=== PATIENT | female | born 1955 | race Caucasian/White ===

== ENCOUNTER 2016-06-02 20:27 | Inpatient (IN) | payer OTHER ==
[2016-06-02 21:30] VITALS: BMI 18.6
--- NOTE | 2016-06-02 22:12 | HP ---
CIWA Score - CIWA Score Nausea/Vomitin Muscle Tremors: 3 Anxiety: 3 Agitation: 2 Paroxysmal Sweats: 1-Minimal Palms Moist Orientation: 0-Oriented Tacttile Disturbances: 2-Mild Itch/Numbness/Burn Auditory Disturbances: 2-Mild Harshness/Frighten Visual Disturbances: 2-Mild Sensitivity Headache: 2-Mild CIWA-Ar Total Score: 20 Admission ROS BHS - HPI Chief Complaint: I NEED HELP TO STOP USING KLONOPIN AND XANAX Allergies/Adverse Reactions: Allergies Allergy/AdvReac Type Severity Reaction Status Date / Time No Known Allergies Allergy Verified 06/02/16 21:44 History of Present Illness: THIS 60 YEARS OLD FEMALE WITH KLONOPIN AND XANAX DEPENDENCE,WITHDRAWAL SYMPTOM, LAST DETOX 30 YEARS AGO MMTP 195 MGS/DAY,LAST MEDICATED TODAY HTN S/P LIVER TRANSPLANTATION HTN OLD CVA ASTHMA HEPATITIS C ANEMIA INSOMNIA DEPRESSION NO SIGNIFICANT PERIOD OF SOBRIETY Exam Limitations: No Limitations - Ebola screening Have you traveled outside of the country in the last 21 days: No (N) Have you had contact with anyone from an Ebola affected area: No Have you been sick,other than usual withdrawal symptoms: No Do you have a fever: No - Review of Systems Constitutional: Loss of Appetite, Malaise, Night Sweats, Changes in sleep EENT: reports: Nose Congestion Respiratory: reports: No Symptoms reported Cardiac: reports: Palpitations GI: reports: Nausea, Vomiting, Abdominal cramping : reports: No Symptoms Reported Musculoskeletal: reports: Back Pain, Muscle Pain Integumentary: reports: Dryness Neuro: reports: Headache, Tremors Endocrine: reports: No Symptoms Reported Hematology: reports: No Symptoms Reported (ANEMIA) Psychiatric: reports: Judgement Intact, Mood/Affect Appropiate, Orientated x3, Depressed (NSOMNIA) Patient History - Patient Medical History Hx Anemia: Yes (ON FERROUS SULFATE) Hx Asthma: Yes (ON ALBUROL INHALER) Hx Chronic Obstructive Pulmonary Disease (COPD): No Hx Cancer: No Hx Cardiac Disorders: No Hx Congestive Heart Failure: No Hx Hypertension: Yes (ON MED) Hx Hypercholesterolemia: No Hx Pacemaker: No HX Cerebrovascular Accident: Yes (IN 04/08 WITH LEFT SIDE WEAKNESS BUT RECOVER) Hx Seizures: No Hx Dementia: No Hx Diabetes: No Hx Gastrointestinal Disorders: Yes (GERD) Hx Liver Disease: Yes (S/P LIVER TRANSPLANTATION IN 2011) Hx Genitourinary Disorders: No Hx Sexually Transmitted Disorders: No Hx Renal Disease (ESRD): No Hx Thyroid Disease: No Hx Human Immunodeficiency Virus (HIV): No (LAST 2016 NEGATIVE) Hx Hepatitis C: Yes (TREATED) Hx Depression: Yes Hx Suicide Attempt: No Hx Bipolar Disorder: No Hx Schizophrenia: No Other Medical History: NO SUICIDAL,NO HOMICIDAL - Patient Surgical History Past Surgical History: Yes Other Surgical History: S/P LIVER TRANSPLANTATION IN 2011 - PPD History Previous Implant?: Yes Documented Results: Positive w/o proof Implanted On Prior R Admission?: No PPD to be Administered?: No - Reproductive History Patient is a Female of Child Bearing Age (11 -55 yrs old): No - Smoking Cessation Smoking history: Current every day smoker Have you smoked in the past 12 months: Yes Aproximately how many cigarettes per day: 10 Cigars Per Day: 0 Hx Chewing Tobacco Use: No Initiated information on smoking cessation: Yes 'Breaking Loose' booklet given: 06/02/16 - Substance & Tx. History Hx Alcohol Use: No Hx Substance Use: Yes Substance Use Type: Tranquilizers Hx Substance Use Treatment: No - Substances Abused Benzodiazepine (Klonopin) Route: Oral Frequency: Daily Amount used: 6 mg Age of first use: 59 Date of Last Use: 06/02/16 Alprazolam (Xanax) Route: Oral Frequency: Daily Amount used: 8mg Age of first use: 59 Date of Last Use: 05/31/16 Family Disease History - Family Disease History Family History: Denies Admission Physical Exam BHS - Vital Signs Vital Signs: Vital Signs - 24 hr 06/02/16 21:26 Temperature 97.6 F Pulse Rate 64 Respiratory 18 Rate Blood Pressure 140/61 - Physical General Appearance: Yes: Moderate Distress, Tremorous, Irritable, Sweating, Anxious HEENTM: Yes: Hearing grossly Normal, Normal ENT Inspection, RODOLOF, Pharynx Normal , Nasal Congestion Respiratory: Yes: Lungs Clear, Normal Breath Sounds, No Respiratory Distress Neck: Yes: Within Normal Limits, Supple, Trachea in good position Breast: Yes: Breast Exam Deferred Cardiology: Yes: Within Normal Limits, Regular Rhythm, Regular Rate, S1, S2 Abdominal: Yes: Normal Bowel Sounds, Non Tender, Flat, Soft, Surgical Scar Genitourinary: Yes: Within Normal Limits Back: Yes: Muscle Spasm Musculoskeletal: Yes: Within Normal Limits, Back pain Extremities: Yes: Tremors Neurological: Yes: nurse aide evaluator II-XII NML intact, Alert, Motor Strength 5/5 Integumentary: Yes: Dry Lymphatic: Yes: Within Normal Limits - Diagnostic (1) Uncomplicated sedative, hypnotic or anxiolytic withdrawal Current Visit: Yes Status: Acute (2) Opioid dependence on agonist therapy Current Visit: Yes Status: Acute (3) Nicotine dependence Current Visit: Yes Status: Acute (4) History of liver transplant Current Visit: Yes Status: Acute (5) Essential hypertension Current Visit: Yes Status: Acute (6) GERD (gastroesophageal reflux disease) Current Visit: Yes Status: Acute (7) Old cerebrovascular accident (CVA) without late effect Current Visit: Yes Status: Acute (8) Asthma Current Visit: Yes Status: Acute (9) Hepatitis C antibody test positive Current Visit: Yes Status: Acute (10) Anemia Current Visit: Yes Status: Acute (11) Neuropathy Current Visit: Yes Status: Acute (12) Positive PPD Current Visit: Yes Status: Acute Cleared for Admission [facility] - Detox or Rehab [facility] Level of Care: Medically Managed Detox Regimen/Protocol: Valium [facility] Breath Alcohol Content Breath Alcohol Content: 0 Urine Pregancy Test - Result Urine Test Results: Negative- NO Line Present Urine Drug Screen - Results Drug Screen Negative: No Urine Drug Screen Results: BZO-Benzodiazepines, MTD-Methadone
[2016-06-02] MEDS ORDERED: MAG HYDROX/AL HYDROX/SIMETH 30 ML UNIT-DOSE CUP PO PRN (22:33)
[2016-06-02] MEDS ORDERED: hydrOXYzine PAMOATE 25 MG CAPSULE (FP) PO PRN (22:33)
[2016-06-02] MEDS ORDERED: diazePAM 5 MG TABLET PO ONE (22:33)
[2016-06-02] MEDS ORDERED: LOPERAMIDE HCL 2 MG CAPSULE PO PRN (22:33)
[2016-06-02] MEDS ORDERED: MENTHOL/PHENOL 1 EACH UD MM PRN (22:33)
[2016-06-02] MEDS ORDERED: guaiFENesin/D-METHORPHAN HB 10 ML UNIT-DOSE CUPS PO PRN (22:33)
[2016-06-02] MEDS ORDERED: MAGNESIUM HYDROX 2400MG/30ML ORAL SUSPENSION 30 ML CUP PO PRN (22:33)
[2016-06-02] MEDS ORDERED: MAGNESIUM CITRATE 300 ML BOTTLE PO PRN (22:33)
[2016-06-02] MEDS ORDERED: P-EPHED 60MG/TRIPROLIDI 2.5MG TABLET PO PRN (22:33)
[2016-06-02] MEDS ORDERED: diphenhydrAMINE HCL 50 MG CAPSULE PO PRN (22:33)
[2016-06-02] MEDS: diazePAM 5 MG TABLET PO SCH (23:43)
[2016-06-03] MEDS: diazePAM 5 MG TABLET PO SCH ×3 (05:04→22:22)
[2016-06-03] MEDS: hydrALAZINE HCL 50 MG TABLET (FP) PO SCH ×3 (07:27→22:22)
[2016-06-03] MEDS ORDERED: METHADONE HCL 10 MG TABLET PO ONE (09:32)
[2016-06-03] MEDS ORDERED: METHADONE 160 MG, METHADONE 30 MG, METHADONE 5 MG PO ONE (09:40)
[2016-06-03] MEDS ORDERED: DOXAZOSIN MESYLATE 2 MG TABLET (FP) PO SCH (10:00)
--- NOTE | 2016-06-03 10:38 | PN ---
S CIWA - CIWA Score Nausea/Vomitin-No Nausea/No Vomiting Muscle Tremors: 4-Moderate,w/Arms Extend Anxiety: 3 Agitation: 4-Moderately Restless Paroxysmal Sweats: 3 Orientation: 0-Oriented Tacttile Disturbances: 0-None Auditory Disturbances: 0-None Visual Disturbances: 0-None Headache: 0-None Present CIWA-Ar Total Score: 14 BHS Progress Note (SOAP) Subjective: lightheaded sweats interrupted sleep agitation Objective: 06/03/16 10:33 Vital Signs Temperature 96.8 F L 06/03/16 10:03 Pulse Rate 57 L 06/03/16 10:03 Respiratory Rate 20 06/03/16 10:03 Blood Pressure 149/71 06/03/16 10:03 O2 Sat by Pulse Oximetry (%) labs pending awake/alert ambulating no acute distress Assessment: 06/03/16 10:36 withdrawal sx Plan: continue detox increase fluids labs pending
[2016-06-03] MEDS: ASPIRIN 81 MG CHEWABLE TABLETS PO SCH (10:50)
[2016-06-03] MEDS: PRENATAL VITAMINS W/ FOLIC ACID TABLET (FP) PO SCH (10:50)
[2016-06-03] MEDS: PANTOPRAZOLE 40 MG TABLET (FP) PO SCH (10:50)
[2016-06-03] MEDS: LISINOPRIL 5 MG TABLET (FP) PO SCH (10:50)
[2016-06-03] MEDS: CALCITRIOL 0.25 MCG CAPSULE (FP) PO SCH (10:51)
[2016-06-03] MEDS: FERROUS SO4 325 MG TABLET (FP) PO SCH (10:52)
[2016-06-03] MEDS ORDERED: METHADONE HCL 10 MG TABLET ONE (10:53)
[2016-06-03] MEDS ORDERED: METHADONE HCL 5 MG TABLET ONE (10:54)
[2016-06-03] MEDS ORDERED: METHADONE HCL 40 MG DISPERSABLE TABLET ONE (10:54)
[2016-06-03] MEDS: diazePAM 5 MG TABLET PO PRN (10:55)
[2016-06-03 11:01] LABS: MCH 29.3 pg (25.7-33.7); MCHC 32.9 g/dl (32.0-36.0); MEAN CELL VOLUME 88.9 fl (80-96); MEAN PLT VOLUME 8.3 fl (7.5-11.1); PLATELET COUNT 92 K/MM3 (134-434); WHITE BLOOD COUNT 2.4 K/mm3 (4.0-10.0)
[2016-06-03 11:13] LABS: ALBUMIN 3.4 g/dl (3.4-5.0); CALCIUM 8.3 mg/dL (8.5-10.1); CREATININE 2.2 mg/dL (0.55-1.02)
[2016-06-03 11:15] LABS: BILIRUBIN,TOTAL 0.4 mg/dL (0.2-1.0); TOT PROT 6.3 g/dl (6.4-8.2)
[2016-06-03] MEDS ORDERED: INFLUENZA VACCINE 45 MCG/0.5 ML (MDV 16-17) IM ONE (12:00)
[2016-06-03] MEDS: CYCLOSPORINE 125 MG PO SCH ×2 (12:02→22:22)
[2016-06-03] MEDS: CHOLECALCIFEROL (VITAMIN D3) 1,000 UNIT TABLET (FP) PO SCH (12:05)
[2016-06-03] MEDS: DOXAZOSIN MESYLATE 4 MG TABLET PO SCH (12:06)
[2016-06-03] MEDS: NICOTINE 21 MG/24 HOURS TOPICAL PATCH TD SCH (12:18)
--- NOTE | 2016-06-03 12:36 | EKG ---
Test Reason : Blood Pressure : / mmHG Vent. Rate : 053 BPM Atrial Rate : 053 BPM P-R Int : 138 ms QRS Dur : 076 ms QT Int : 458 ms P-R-T Axes : 062 020 034 degrees QTc Int : 429 ms SINUS BRADYCARDIA ANTERIOR INFARCT , AGE UNDETERMINED ABNORMAL ECG NO PREVIOUS ECGS AVAILABLE Confirmed by LIZABETH HANSON MD ([id number]) on 06/03/2016 12:36:13 PM Referred By: Confirmed By:LIZABETH HANSON MD
[2016-06-03] MEDS: ACETAMINOPHEN 325 MG TABLET (FP) PO PRN (20:53)
[2016-06-03] MEDS: THIAMINE HCL 100 MG TABLET (FP) PO SCH (22:22)
--- NOTE | 2016-06-03 22:38 | CONSULT ---
[facility] Psychiatric Consult - Data Date of interview: 06/03/16 Admission source: [facility] Identifying data: First admission to [facility] for this 60 y/o female seeking detox treatment for benzodiazepine dependence (xanax and clonazepam) .Patient is single,mother of one,domiciled,retired as solution designer and supprted on her pension benefits. Substance Abuse History: - Smoking Cessation. Smoking history: Current every day smoker. Have you smoked in the past 12 months: Yes. Aproximately how many cigarettes per day: 10. Cigars Per Day: 0. Hx Chewing Tobacco Use: No. Initiated information on smoking cessation: Yes. 'Breaking Loose' booklet given : 06/02/16. - Substance & Tx. History. Hx Alcohol Use: No. Hx Substance Use: Yes. Substance Use Type: Tranquilizers. Hx Substance Use Treatment: No. - Substances Abused. Benzodiazepine (Klonopin). Route: Oral. Frequency: Daily. Amount used: 6 mg. Age of first use: 59. Date of Last Use: 06/02/16. Alprazolam (Xanax). Route: Oral. Frequency: Daily. Amount used: 8mg. Age of first use: 59. Date of Last Use: 05/31/16. Patient confirmed. Medical History: Bronchial asthma,anemia,hypertension,GERD,CVA with left-sided weakness (2016) and history of liver transplant (2011). Psychiatric History: One psychiatric hospitalization thirty years ago.Used to be on lexapro.Stopped taking that medication (own choice).Diagnosed with MDD.Ms Zamora is on methadone maintenance (195 mg/day).No history of suicide attempts. Physical/Sexual Abuse/Trauma History: Patient denies. Additional Comment: Urine Drug Screen Results: BZO-Benzodiazepines, MTD- Methadone.Noted. Mental Status Exam - Mental Status Exam Alert and Oriented to: Time, Place, Person Cognitive Function: Grossly Intact Patient Appearance: Well Groomed Mood: Hopeful, Euthymic Affect: Normal Range Patient Behavior: Fatigued, Appropriate, Cooperative Speech Pattern: Clear Voice Loudness: Normal Thought Process: Goal Oriented Thought Disorder: Not Present Hallucinations: Denies Homicidal Ideation: Denies Insight/Judgement: Poor Sleep: Fair Appetite: Good Muscle strength/Tone: Normal Gait/Station: Normal Psychiatric Findings - Problem List ([place] 1, 2,3) (1) Opioid dependence on agonist therapy Current Visit: Yes Status: Acute (2) Uncomplicated sedative, hypnotic or anxiolytic withdrawal Current Visit: Yes Status: Acute (3) Nicotine dependence Current Visit: Yes Status: Acute (4) Substance-induced anxiety disorder Current Visit: Yes Status: Acute (5) Anemia Current Visit: Yes Status: Chronic (6) Asthma Current Visit: Yes Status: Chronic (7) Essential hypertension Current Visit: Yes Status: Chronic (8) GERD (gastroesophageal reflux disease) Current Visit: Yes Status: Chronic (9) Hepatitis C antibody test positive Current Visit: Yes Status: Chronic (10) History of liver transplant Current Visit: Yes Status: Chronic (11) Neuropathy Current Visit: Yes Status: Chronic (12) Old cerebrovascular accident (CVA) without late effect Current Visit: Yes Status: Chronic (13) Positive PPD Current Visit: Yes Status: Chronic - Initial Treatment Plan Initial Treatment Plan: Psychoeducation.Detoxification.Observation.Patient declines to take any medication other than methadone and detox agents.
[2016-06-04] MEDS: ACETAMINOPHEN 325 MG TABLET (FP) PO PRN ×2 (00:44→17:19)
[2016-06-04] MEDS ORDERED: METHADONE HCL 10 MG TABLET ONE (04:56)
[2016-06-04] MEDS ORDERED: METHADONE HCL 40 MG DISPERSABLE TABLET ONE (04:56)
[2016-06-04] MEDS ORDERED: METHADONE HCL 5 MG TABLET ONE (04:57)
[2016-06-04] MEDS: METHADONE 160 MG, METHADONE 30 MG, METHADONE 5 MG PO SCH (05:50)
[2016-06-04] MEDS ORDERED: METHADONE HCL 40 MG DISPERSABLE TABLET PO SCH (06:00)
[2016-06-04] MEDS: hydrALAZINE HCL 50 MG TABLET (FP) PO SCH ×3 (06:58→22:18)
[2016-06-04] MEDS: LISINOPRIL 5 MG TABLET (FP) PO SCH (10:25)
[2016-06-04] MEDS: PRENATAL VITAMINS W/ FOLIC ACID TABLET (FP) PO SCH (10:25)
[2016-06-04] MEDS: PANTOPRAZOLE 40 MG TABLET (FP) PO SCH (10:26)
[2016-06-04] MEDS: diazePAM 5 MG TABLET PO SCH ×2 (10:26→22:18)
[2016-06-04] MEDS: FERROUS SO4 325 MG TABLET (FP) PO SCH (10:26)
[2016-06-04] MEDS: CHOLECALCIFEROL (VITAMIN D3) 1,000 UNIT TABLET (FP) PO SCH (10:27)
[2016-06-04] MEDS: CALCITRIOL 0.25 MCG CAPSULE (FP) PO SCH (10:27)
[2016-06-04] MEDS: CYCLOSPORINE 125 MG PO SCH ×2 (10:28→22:18)
[2016-06-04] MEDS: NICOTINE 21 MG/24 HOURS TOPICAL PATCH TD SCH (10:29)
[2016-06-04] MEDS: DOXAZOSIN MESYLATE 4 MG TABLET PO SCH (10:30)
[2016-06-04 10:35] LABS: URINE APPEARANCE CLEAR; URINE BILIRUBIN NEGATIVE (NEGATIVE); URINE BLOOD NEGATIVE (NEGATIVE); URINE COLOR LTYELLOW; URINE GLUCOSE (UA) 3+ (NEGATIVE); URINE KETONE NEGATIVE (NEGATIVE); URINE LEUK ESTERASE NEGATIVE (NEGATIVE); URINE NITRITE NEGATIVE (NEGATIVE); URINE PROTEIN NEGATIVE (NEGATIVE); URINE UROBILINOGEN NEGATIVE E.U./dl (0.2-1.0)
--- NOTE | 2016-06-04 11:15 | PN ---
S CIWA - CIWA Score Nausea/Vomitin Muscle Tremors: 2 Anxiety: 3 Agitation: 3 Paroxysmal Sweats: 3 Orientation: 0-Oriented Tacttile Disturbances: 1-Very Mild Itch/Numbness Auditory Disturbances: 0-None Visual Disturbances: 0-None Headache: 1-Very Mild CIWA-Ar Total Score: 15 S Progress Note (SOAP) Subjective: interrupted sleep, sweats, headache ,constipation Objective: 06/04/16 11:14 Vital Signs Temperature 98.1 F 06/04/16 10:01 Pulse Rate 80 06/04/16 10:01 Respiratory Rate 16 06/04/16 10:01 Blood Pressure 131/60 06/04/16 10:01 O2 Sat by Pulse Oximetry (%) Laboratory Tests 06/03/16 06/03/16 06/03/16 06:00 06:00 06:00 WBC 2.4 L RBC 3.65 Hgb 10.7 Hct 32.5 MCV 88.9 MCHC 32.9 RDW 15.0 Plt Count 92 L MPV 8.3 Sodium 143 Potassium 4.5 Chloride 106 Carbon Dioxide 28 Anion Gap 9 BUN 44 H Creatinine 2.2 H Creat Clearance w eGFR 22.77 Random Glucose 121 H Calcium 8.3 L Total Bilirubin 0.4 AST 13 L ALT 9 L Alkaline Phosphatase 79 Total Protein 6.3 L Albumin 3.4 Urine Color Urine Appearance Urine pH Ur Specific [place] Urine Protein Urine Glucose (UA) Urine Ketones Urine Blood Urine Nitrite Urine Bilirubin Urine Urobilinogen Ur Leukocyte Esterase RPR Titer Nonreactive 06/04/16 07:00 WBC RBC Hgb Hct MCV MCHC RDW Plt Count MPV Sodium Potassium Chloride Carbon Dioxide Anion Gap BUN Creatinine Creat Clearance w eGFR Random Glucose Calcium Total Bilirubin AST ALT Alkaline Phosphatase Total Protein Albumin Urine Color Ltyellow Urine Appearance Clear Urine pH 5.0 Ur Specific [place] 1.042 H Urine Protein Negative Urine Glucose (UA) 3+ H Urine Ketones Negative Urine Blood Negative Urine Nitrite Negative Urine Bilirubin Negative Urine Urobilinogen Negative Ur Leukocyte Esterase Negative RPR Titer pt aox3 in nad ambulating Assessment: 06/04/16 11:15 withdrawal sx;s renal failure hep c s/p liver transplant htn 06/04/16 11:16 Plan: cont. detox increase fluids repeat labs lactulose hs
[2016-06-04] MEDS ORDERED: LACTULOSE 20 GM/30 ML UDC (FOR ORAL USE ONLY) PO ONE (11:20)
[2016-06-04] MEDS: ASPIRIN 81 MG CHEWABLE TABLETS PO SCH (11:42)
[2016-06-04] MEDS: diazePAM 5 MG TABLET PO PRN (17:20)
[2016-06-04] MEDS: IBUPROFEN 400 MG TABLET (FP) PO PRN (19:34)
[2016-06-04] MEDS: THIAMINE HCL 100 MG TABLET (FP) PO SCH (22:18)
[2016-06-04] MEDS: LACTULOSE 20 GM/30 ML UDC (FOR ORAL USE ONLY) PO SCH (22:22)
[2016-06-05] MEDS ORDERED: METHADONE HCL 5 MG TABLET ONE (04:26)
[2016-06-05] MEDS ORDERED: METHADONE HCL 10 MG TABLET ONE (04:26)
[2016-06-05] MEDS ORDERED: METHADONE HCL 40 MG DISPERSABLE TABLET ONE (04:26)
[2016-06-05] MEDS: METHADONE 160 MG, METHADONE 30 MG, METHADONE 5 MG PO SCH (05:27)
[2016-06-05] MEDS: hydrALAZINE HCL 50 MG TABLET (FP) PO SCH ×3 (05:30→22:14)
--- NOTE | 2016-06-05 09:29 | PN ---
Psychiatric Progress Note Vital Signs: Vital Signs Period Temp Pulse Resp BP Sys/Thompson Pulse Ox Last 24 Hr 97.3 F-98.1 F 56-80 16-20 131-146/51-79 Date of Session: 06/05/16 Chief Complaint:: My medications HPI: Patient reprots not having hjer preadmission medications: Gabapentin 500mg po bid. Lexapro 20mg poqd Current Medications: Active Medications Generic Name Dose Route Start Last Admin Trade Name Freq PRN Reason Stop Dose Admin Acetaminophen 650 mg 06/02/16 22:33 06/04/16 17:19 Tylenol - PO 650 mg Q4H PRN Administration FEVER OR PAIN Al Hydroxide/Mg Hydroxide 30 ml 06/02/16 22:33 Mylanta Oral Suspension - PO Q6H PRN DYSPEPSIA Aspirin 162 mg 06/03/16 10:00 06/04/16 11:42 Asa - PO 162 mg DAILY JOSÉ MIGUEL Administration Calcitriol 0.25 mcg 06/03/16 10:00 06/04/16 10:27 Rocaltrol - PO 0.25 mcg DAILY JOSÉ MIGUEL Administration Cholecalciferol 1,000 unit 06/03/16 10:00 06/04/16 10:27 Vitamin D3 - PO 1,000 unit DAILY JOSÉ MIGUEL Administration Diazepam 10 mg 06/02/16 22:33 06/04/16 17:20 Valium - PO 06/05/16 22:32 10 mg Q4H PRN Administration WITHDRAWAL(CONT SUBST) Diazepam 5 mg 06/04/16 10:00 06/04/16 22:18 Valium - PO 06/05/16 22:01 5 mg BID JOSÉ MIGUEL Administration Diazepam 5 mg 06/06/16 10:00 Valium - PO 06/06/16 10:01 DAILY JOSÉ MIGUEL Diphenhydramine HCl 50 mg 06/02/16 22:33 06/04/16 01:58 Benadryl - PO 50 mg HSMR1 PRN Administration INSOMNIA Doxazosin Mesylate 2 mg 06/03/16 10:00 06/04/16 10:30 Cardura - PO 2 mg DAILY JOSÉ MIGUEL Administration Eucalyptus/Menthol/Phenol/Sorbitol 1 each 06/02/16 22:33 Cepastat Lozenge - MM Q4H PRN SORE THROAT Ferrous Sulfate 325 mg 06/03/16 10:00 06/04/16 10:26 Feosol - PO 325 mg DAILY JOSÉ MIGUEL Administration Guaifenesin 10 ml 06/02/16 22:33 Robitussin Dm - PO Q6H PRN COUGH Hydralazine HCl 50 mg 06/03/16 06:00 06/05/16 05:30 Apresoline - PO 50 mg TID JOSÉ MIGUEL Administration Hydroxyzine Pamoate 25 mg 06/02/16 22:33 Vistaril - PO Q4H PRN AGITATION Ibuprofen 400 mg 06/02/16 22:33 06/04/16 19:34 Motrin - PO 400 mg Q6H PRN Administration SEVERE PAIN Lactulose 20 gm 06/04/16 22:00 06/04/16 22:22 Cephulac (Oral Use) PO 20 gm HS [facility] Administration Lisinopril 2.5 mg 06/03/16 10:00 06/04/16 10:25 Prinivil PO 2.5 mg DAILY JOSÉ MIGUEL Administration Loperamide HCl 4 mg 06/02/16 22:33 Imodium - PO Q6H PRN DIARRHEA Magnesium Citrate 300 ml 06/02/16 22:33 Citroma - PO Q48H PRN CONSTIPATION Magnesium Hydroxide 30 ml 06/02/16 22:33 Milk Of Magnesia - PO DAILY PRN CONSTIPATION Methadone HCl 160 mg/ 195 mg 06/04/16 06:00 06/05/16 05:27 Methadone HCl 30 mg/ Methadone PO 195 mg HCl 5 mg DAILY@0600 [facility] Administration Nicotine 21 mg 06/03/16 10:00 06/04/16 10:29 Nicoderm Patch - TD 21 mg DAILY [facility] Administration Non-Formulary Medication 125 mg 06/03/16 10:00 06/04/16 22:18 Cyclosporine [Sandimmune] PO 125 mg BID [facility] Administration Pantoprazole Sodium 40 mg 06/03/16 10:00 06/04/16 10:26 Protonix - PO 40 mg DAILY [facility] Administration Multivit/Folic Acid/Iron 1 tab 06/03/16 10:00 06/04/16 10:25 Vitamins (Sjr) - PO 1 tab DAILY [facility] Administration Pseudoephedrine/Triprolidine 1 combo 06/02/16 22:33 Actifed - PO TID PRN NASAL CONGESTION Thiamine HCl 100 mg 06/03/16 22:00 06/04/16 22:18 Vitamin B1 - PO 100 mg HS JOSÉ MIGUEL Administration Medication(s) Change(s): Gabapentin 500mg po bid. Lexapro 20mg poqd Mental Status Exam - Mental Status Exam Alert and Oriented to: Person Cognitive Function: Fair Patient Appearance: Unkempt Mood: Anxious Affect: Mood Congruent Patient Behavior: Cooperative Speech Pattern: Appropriate Voice Loudness: Mildly Loud Thought Process: Goal Oriented Thought Disorder: Being Controlled Hallucinations: Denies Suicidal Ideation: Denies Homicidal Ideation: Denies Insight/Judgement: Fair Sleep: Difficulty falling asleep Appetite: Weight gain Muscle strength/Tone: Normal Gait/Station: Shuffling Additional Comments: Gabapentin 500mg po bid. Lexapro 20mg poqd Psychiatric Treatment Plan - Problem List (1) Nicotine dependence Current Visit: Yes (2) Opioid dependence on agonist therapy Current Visit: Yes (3) Substance-induced anxiety disorder Current Visit: Yes (4) Neuropathy Current Visit: Yes Initial treatment plan: Gabapentin 500mg po bid. Lexapro 20mg poqd
[2016-06-05 09:52] LABS: BASOPHIL 0.6 % (0-2.0); EOSINOPHIL 6.3 % (0-4.5); MCH 28.8 pg (25.7-33.7); MCHC 32.3 g/dl (32.0-36.0); MEAN PLT VOLUME 8.8 fl (7.5-11.1); NEUTROPHILS 57.7 % (42.8-82.8); PLATELET COUNT 83 K/MM3 (134-434); RDW 14.8 % (11.6-15.6); WHITE BLOOD COUNT 2.1 K/mm3 (4.0-10.0)
[2016-06-05] MEDS: diazePAM 5 MG TABLET PO SCH ×2 (10:07→22:13)
[2016-06-05] MEDS: PANTOPRAZOLE 40 MG TABLET (FP) PO SCH (10:07)
[2016-06-05] MEDS: ASPIRIN 81 MG CHEWABLE TABLETS PO SCH (10:07)
[2016-06-05] MEDS: FERROUS SO4 325 MG TABLET (FP) PO SCH (10:07)
[2016-06-05] MEDS: PRENATAL VITAMINS W/ FOLIC ACID TABLET (FP) PO SCH (10:07)
[2016-06-05 10:08] LABS: CALCIUM 8.5 mg/dL (8.5-10.1)
[2016-06-05] MEDS: CYCLOSPORINE 125 MG PO SCH ×2 (10:08→22:13)
[2016-06-05] MEDS: CALCITRIOL 0.25 MCG CAPSULE (FP) PO SCH (10:08)
[2016-06-05] MEDS: LISINOPRIL 5 MG TABLET (FP) PO SCH (10:08)
[2016-06-05] MEDS: DOXAZOSIN MESYLATE 4 MG TABLET PO SCH (10:10)
[2016-06-05] MEDS: NICOTINE 21 MG/24 HOURS TOPICAL PATCH TD SCH (10:11)
[2016-06-05] MEDS: CHOLECALCIFEROL (VITAMIN D3) 1,000 UNIT TABLET (FP) PO SCH (10:27)
--- NOTE | 2016-06-05 11:09 | PN ---
BHS Progress Note (SOAP) Subjective: agitation sweats interrupted sleep Objective: 06/05/16 11:08 Vital Signs Temperature 97.5 F L 06/05/16 09:47 Pulse Rate 66 06/05/16 09:47 Respiratory Rate 18 06/05/16 09:47 Blood Pressure 148/78 06/05/16 09:47 O2 Sat by Pulse Oximetry (%) awake/alert ambulating no acute distress Assessment: 06/05/16 11:08 withdrawal sx Plan: continue detox increase fluids d/c in am
[2016-06-05] MEDS: ESCITALOPRAM OXALATE 20 MG TABLET (FP) PO SCH (11:21)
[2016-06-05] MEDS: GABAPENTIN 300 MG CAPSULE (FP) PO SCH ×2 (11:21→22:13)
[2016-06-05] MEDS: IBUPROFEN 400 MG TABLET (FP) PO PRN (13:46)
[2016-06-05] MEDS: THIAMINE HCL 100 MG TABLET (FP) PO SCH (22:13)
[2016-06-05] MEDS: LACTULOSE 20 GM/30 ML UDC (FOR ORAL USE ONLY) PO SCH (22:13)
[2016-06-06] MEDS ORDERED: METHADONE HCL 40 MG DISPERSABLE TABLET ONE (04:54)
[2016-06-06] MEDS ORDERED: METHADONE HCL 10 MG TABLET ONE (04:54)
[2016-06-06] MEDS ORDERED: METHADONE HCL 5 MG TABLET ONE (04:54)
[2016-06-06] MEDS: METHADONE 160 MG, METHADONE 30 MG, METHADONE 5 MG PO SCH (05:27)
[2016-06-06] MEDS: hydrALAZINE HCL 50 MG TABLET (FP) PO SCH (05:27)
[2016-06-06 06:29] VITALS: BP 138/64; PULSE 73; TEMP 97.9
--- NOTE | 2016-06-06 08:06 | PN ---
S Progress Note (SOAP) Subjective: ALERT,NO COMPLAINT Objective: 06/06/16 08:02 Vital Signs Temperature 97.9 F 06/06/16 06:00 Pulse Rate 73 06/06/16 06:00 Respiratory Rate 16 06/06/16 06:00 Blood Pressure 138/64 06/06/16 06:00 O2 Sat by Pulse Oximetry (%) Assessment: 06/06/16 08:04 DETOX COMPLETED,NO WITHDRAWAL SYMPTOM Plan: DISCHARGE TODAY,FOLLOW UP WITH AFTER CARE PROGRAM ARRANGEMENT AND PMD FOR MEDICL PROBLEM
--- NOTE | 2016-06-06 08:10 | PN ---
[facility] Progress Note Note: ADDENDUM PATIENT HAS ALL MEDICATIONS WITH HER
--- NOTE | 2016-06-06 08:15 | DS ---
[facility] Detox Discharge Summary Admission Date: 06/02/16 Discharge Date: 06/06/16 - History Present History: Sedative Dependence, MMTP Additional Comments: FOLLOW UP WITH AFTER CARE PROGRAM ARRANGEMENT ,FOLLOW UP WITH PMD FOR MEDICAL PROBLEM PATIENT HAS ALL MEDICATIONS AT HOME Pertinent Past History: ESSENTIAL HYPERTENSION S/P LIVER TRANSPLANTATION HEPATITIS C OLD CVA MMTP NICOTINE DEPENDENCE ANEMIA - Physical Exam Results Vital Signs: Vital Signs Temperature 97.9 F 06/06/16 06:00 Pulse Rate 73 06/06/16 06:00 Respiratory Rate 16 06/06/16 06:00 Blood Pressure 138/64 06/06/16 06:00 O2 Sat by Pulse Oximetry (%) - Treatment Hospital Course: Detox Protocol Followed, Detoxed Safely, Responded well, Discharged Condition Good Patient has Accepted a Rehab Referral to: DECLINED - Medication Discharge Medications: Ambulatory Orders Aspirin [Durlaza] 162.5 mg PO DAILY 06/02/16 Calcitriol [Calcitriol -] 0.25 mcg PO DAILY 06/02/16 Cholecalciferol (Vitamin D3) [Vitamin D3 -] 1,000 unit PO DAILY 06/02/16 Cyclosporine [Sandimmune] 125 mg PO BID 06/02/16 Doxazosin Mesylate [Cardura -] 2 mg PO DAILY 06/02/16 Escitalopram Oxalate [Lexapro -] 20 mg PO DAILY 06/02/16 Ferrous Sulfate [Feosol] 325 mg PO DAILY 06/02/16 Furosemide [Lasix] 40 mg PO BID 06/02/16 Gabapentin [Neurontin] 600 mg PO BID 06/02/16 Hydralazine HCl 50 mg PO TID 06/02/16 Lisinopril [Zestril] 2.5 mg PO DAILY 06/02/16 Methadone [Dolophine -] 195 mg PO DAILY 06/02/16 Pantoprazole Sodium [Protonix -] 40 mg PO DAILY 06/02/16 Escitalopram Oxalate [Lexapro -] 20 mg PO DAILY #30 tablet 06/05/16 Gabapentin [Neurontin -] 600 mg PO BID #60 06/05/16 Gabapentin [Neurontin] 600 mg PO BID #60 tablet 06/05/16 Lactulose (Oral Use) [Cephulac -] 20 gm PO HS 06/06/16 - Diagnosis (1) Uncomplicated sedative, hypnotic or anxiolytic withdrawal Current Visit: Yes Status: Acute (2) Opioid dependence on agonist therapy Current Visit: Yes Status: Acute (3) Nicotine dependence Current Visit: Yes Status: Acute (4) History of liver transplant Current Visit: Yes Status: Chronic (5) Essential hypertension Current Visit: Yes Status: Chronic (6) GERD (gastroesophageal reflux disease) Current Visit: Yes Status: Chronic (7) Old cerebrovascular accident (CVA) without late effect Current Visit: Yes Status: Chronic (8) Asthma Current Visit: Yes Status: Chronic (9) Hepatitis C antibody test positive Current Visit: Yes Status: Chronic (10) Anemia Current Visit: Yes Status: Chronic (11) Neuropathy Current Visit: Yes Status: Chronic (12) Positive PPD Current Visit: Yes Status: Chronic - AMA Did Patient Leave Against Medical Advice: No
[2016-06-06] MEDS: ASPIRIN 81 MG CHEWABLE TABLETS PO SCH (09:32)
[2016-06-06] MEDS: ESCITALOPRAM OXALATE 20 MG TABLET (FP) PO SCH (09:33)
[2016-06-06] MEDS: GABAPENTIN 300 MG CAPSULE (FP) PO SCH (09:33)
[2016-06-06] MEDS: FERROUS SO4 325 MG TABLET (FP) PO SCH (09:33)
[2016-06-06] MEDS: NICOTINE 21 MG/24 HOURS TOPICAL PATCH TD SCH (09:33)
[2016-06-06] MEDS: PANTOPRAZOLE 40 MG TABLET (FP) PO SCH (09:33)
[2016-06-06] MEDS: PRENATAL VITAMINS W/ FOLIC ACID TABLET (FP) PO SCH (09:33)
[2016-06-06] MEDS: CHOLECALCIFEROL (VITAMIN D3) 1,000 UNIT TABLET (FP) PO SCH (09:34)
[2016-06-06] MEDS: LISINOPRIL 5 MG TABLET (FP) PO SCH (09:34)
[2016-06-06] MEDS: CYCLOSPORINE 125 MG PO SCH (09:35)
[2016-06-06] MEDS: DOXAZOSIN MESYLATE 4 MG TABLET PO SCH (09:44)
[2016-06-06] MEDS ORDERED: diazePAM 5 MG TABLET PO SCH (10:00)
== END 2016-06-06 09:46 | disposition home or self-care (01) | DRG 773 ==
LOC: YASAS 20:27 → Y6N 22:06
PROVIDERS: ADMIT Internal Medicine Addiction Medicine; ATTEND Internal Medicine Addiction Medicine
PROC: HZ2ZZZZ Detoxification Services for Substance Abuse Treatment (ICD-10-PCS; principal; 2016-06-06)
DX: F11.20 Opioid dependence, uncomplicated (principal); F13.230 Sedative, hypnotic or anxiolytic dependence with withdrawal, uncomplicated; F17.210 Nicotine dependence, cigarettes, uncomplicated; I10 Essential (primary) hypertension; J45.909 Unspecified asthma, uncomplicated; K21.9 Gastro-esophageal reflux disease without esophagitis; B18.2 Chronic viral hepatitis C; D64.9 Anemia, unspecified; G62.9 Polyneuropathy, unspecified; R76.11 Nonspecific reaction to tuberculin skin test without active tuberculosis; Z94.4 Liver transplant status
CPT/HCPCS: 36415; 71020-TC; 80048; 80053; 81003; 85025; 85027; 86593; 87522; 93005; 93010

== ENCOUNTER 2016-07-11 12:02 | Inpatient (IN) | payer OTHER ==
[2016-07-11 12:41] VITALS: BMI 26.4
--- NOTE | 2016-07-11 16:48 | HP ---
CIWA Score - CIWA Score Nausea/Vomitin-No Nausea/No Vomiting Muscle Tremors: 5 Anxiety: 4-Mod. Anxious/Guarded Agitation: 5 Paroxysmal Sweats: No Perspiration Orientation: 0-Oriented Tacttile Disturbances: 0-None Auditory Disturbances: 0-None Visual Disturbances: 0-None Headache: 0-None Present CIWA-Ar Total Score: 14 Admission ROS BHS - HPI Chief Complaint: withdrawal sx Allergies/Adverse Reactions: Allergies Allergy/AdvReac Type Severity Reaction Status Date / Time No Known Allergies Allergy Verified 07/11/16 18:09 History of Present Illness: 60 years old female with long history of benzo nicotine dependence, had liver transplant 2012, chronic creatinin elevation, hypertension depression, and constipation is admitted to detox Exam Limitations: No Limitations - Ebola screening Have you traveled outside of the country in the last 21 days: No Have you had contact with anyone from an Ebola affected area: No Have you been sick,other than usual withdrawal symptoms: No Do you have a fever: No - Review of Systems Constitutional: Chills, Changes in sleep, Weight Stable EENT: reports: Other (eye glasses) Respiratory: reports: No Symptoms reported Cardiac: reports: No Symptoms Reported GI: reports: Poor Fluid Intake, Indigestion, Abdominal cramping : reports: No Symptoms Reported Musculoskeletal: reports: No Symptoms Reported Integumentary: reports: Dryness Neuro: reports: Tremors Endocrine: reports: No Symptoms Reported Hematology: reports: No Symptoms Reported Psychiatric: reports: Judgement Intact, Orientated x3, Depressed Other Systems: Reviewed and Negative Patient History - Patient Medical History Hx Anemia: Yes (ON FERROUS SULFATE) Hx Asthma: Yes (ON ALBUROL INHALER) Hx Chronic Obstructive Pulmonary Disease (COPD): No Hx Cancer: No Hx Cardiac Disorders: No Hx Congestive Heart Failure: No Hx Hypertension: Yes (ON MED) Hx Hypercholesterolemia: No Hx Pacemaker: No HX Cerebrovascular Accident: Yes (IN 04/08 WITH LEFT SIDE WEAKNESS BUT RECOVER) Hx Seizures: No Hx Dementia: No Hx Diabetes: No Hx Gastrointestinal Disorders: Yes (GERD) Hx Liver Disease: Yes (S/P LIVER TRANSPLANTATION IN 2011) Hx Genitourinary Disorders: No Hx Sexually Transmitted Disorders: No Hx Renal Disease (ESRD): No Hx Thyroid Disease: No Hx Human Immunodeficiency Virus (HIV): No (LAST 2015 NEGATIVE) Hx Hepatitis C: No (liver transplanted) Hx Depression: No Hx Suicide Attempt: No Hx Bipolar Disorder: Yes Hx Schizophrenia: No - Patient Surgical History Past Surgical History: Yes Hx Abdominal Surgery: Yes (Liver transplant 2011) Other Surgical History: S/P LIVER TRANSPLANTATION IN 2011 Anesthesia Reaction: No - PPD History Previous Implant?: Yes Documented Results: Negative w/o proof Implanted On Prior R Admission?: No Results: positive PPD to be Administered?: No - Reproductive History Patient is a Female of Child Bearing Age (11 -55 yrs old): No Patient : No - Smoking Cessation Smoking history: Current every day smoker Have you smoked in the past 12 months: Yes Aproximately how many cigarettes per day: 10 Cigars Per Day: 0 Hx Chewing Tobacco Use: No Initiated information on smoking cessation: Yes 'Breaking Loose' booklet given: 07/11/16 - Substance & Tx. History Hx Alcohol Use: No Hx Substance Use: Yes Substance Use Type: Heroin, Tranquilizers Hx Substance Use Treatment: Yes - Substances Abused Benzodiazepine temezepam Route: Oral Frequency: Daily Amount used: 32 mg Age of first use: 60 Date of Last Use: 07/11/16 Family Disease History - Family Disease History Family Disease History: Heart Disease: Father ( heart attack), Respiratory: Mother ( copd), Other: Brother ( overdose), Sister ( mva) Admission Physical Exam S - Vital Signs Vital Signs: Vital Signs - 24 hr 07/11/16 12:38 Temperature 96.6 F L Pulse Rate 70 Respiratory 18 Rate Blood Pressure 152/93 - Physical General Appearance: Yes: Nourished, Appropriately Dressed, Mild Distress, Tremorous, Irritable, Sweating, Anxious HEENTM: Yes: Hearing grossly Normal, Normal ENT Inspection, Normocephalic, Normal Voice Respiratory: Yes: Chest Non-Tender, Lungs Clear, Normal Breath Sounds, No Respiratory Distress, No Accessory Muscle Use Neck: Yes: Supple, Trachea in good position Breast: Yes: Breasts Symetrical Cardiology: Yes: Regular Rhythm, Regular Rate, S1, S2 Abdominal: Yes: Non Tender, Soft, Protuberent, Surgical Scar Genitourinary: Yes: Within Normal Limits Back: Yes: Normal Inspection Musculoskeletal: Yes: full range of Motion, Gait Steady Extremities: Yes: Normal Inspection, Normal Range of Motion, Non-Tender, Tremors Neurological: Yes: Fully Oriented, Alert, Motor Strength 5/5, Normal Response, Depressed Affect Integumentary: Yes: Warm Lymphatic: Yes: Within Normal Limits - Diagnostic (1) Nicotine dependence Status: Chronic Qualifiers: Nicotine product type: cigarettes Substance use status: uncomplicated Qualified Code(s): F17.210 - Nicotine dependence, cigarettes, uncomplicated (2) Uncomplicated sedative, hypnotic or anxiolytic withdrawal Status: Acute (3) Asthma Status: Chronic Qualifiers: Asthma severity: mild intermittent Asthma complication type: with status asthmaticus Qualified Code(s): J45.22 - Mild intermittent asthma with status asthmaticus (4) Essential hypertension Status: Chronic (5) GERD (gastroesophageal reflux disease) Status: Chronic Qualifiers: Esophagitis presence: without esophagitis Qualified Code(s): K21.9 - Gastro-esophageal reflux disease without esophagitis (6) History of liver transplant Status: Inactive Comment: follow up with cyclosporine 175 mg bid, case discuss with pharmacist Barbara Bowden, approved by Dr. Ham 07/11/16 2033. (7) Old cerebrovascular accident (CVA) without late effect Status: Resolved (8) Positive PPD Status: Inactive Comment: liver transplant (9) Bipolar II disorder Status: Suspected Comment: neurontine (10) Methadone maintenance therapy patient Status: Chronic Comment: 190 mg verification pending Cleared for Admission S - Detox or Rehab [facility] Level of Care: Medically Managed Detox Regimen/Protocol: Valium [facility] Breath Alcohol Content Breath Alcohol Content: 0 Urine Pregancy Test - Result Urine Test Results: Negative- NO Line Present Urine Drug Screen - Results Drug Screen Negative: No Urine Drug Screen Results: BZO-Benzodiazepines, MTD-Methadone
[2016-07-11] MEDS ORDERED: NICOTINE POLACRILEX 2 MG GUM BC PRN (17:13)
[2016-07-11] MEDS ORDERED: diazePAM 5 MG TABLET PO ONE (17:13)
[2016-07-11] MEDS ORDERED: MENTHOL/PHENOL 1 EACH UD MM PRN (17:13)
[2016-07-11] MEDS ORDERED: guaiFENesin/D-METHORPHAN HB 10 ML UNIT-DOSE CUPS PO PRN (17:13)
[2016-07-11] MEDS ORDERED: diazePAM 5 MG TABLET PO PRN (17:13)
[2016-07-11] MEDS ORDERED: MAG HYDROX/AL HYDROX/SIMETH 30 ML UNIT-DOSE CUP PO PRN (17:13)
[2016-07-11] MEDS ORDERED: LOPERAMIDE HCL 2 MG CAPSULE PO PRN (17:13)
[2016-07-11] MEDS ORDERED: hydrOXYzine PAMOATE 50 MG CAPSULE (FP) PO PRN (17:13)
[2016-07-11] MEDS ORDERED: P-EPHED 60MG/TRIPROLIDI 2.5MG TABLET PO PRN (17:13)
[2016-07-11] MEDS ORDERED: MAGNESIUM CITRATE 300 ML BOTTLE PO PRN (17:13)
[2016-07-11] MEDS ORDERED: MAGNESIUM HYDROX 2400MG/30ML ORAL SUSPENSION 30 ML CUP PO PRN (17:13)
[2016-07-11] MEDS ORDERED: diphenhydrAMINE HCL 50 MG CAPSULE PO PRN (17:13)
[2016-07-11] MEDS ORDERED: ASPIRIN 81 MG CHEWABLE TABLETS PO ONE ×2 (17:18→20:45)
[2016-07-11] MEDS ORDERED: ALBUTEROL SO4 6.7 GM HFA INHALER IH PRN (17:25)
[2016-07-11] MEDS ORDERED: cycloSPORINE 25 MG CAPSULE PO SCH (22:00)
[2016-07-11] MEDS: LACTULOSE 20 GM/30 ML UDC (FOR ORAL USE ONLY) PO SCH (22:18)
[2016-07-11] MEDS: diazePAM 5 MG TABLET PO SCH (22:19)
[2016-07-11] MEDS: THIAMINE HCL 100 MG TABLET (FP) PO SCH (22:19)
[2016-07-11] MEDS: [UNRECOGNIZED DRUG - OTHER] PO SCH (22:20)
[2016-07-11] MEDS: cycloSPORINE MICROEMULSION (MODIFIED) 25 MG CAPSULE PO SCH (22:20)
[2016-07-11 23:07] LABS: URINE APPEARANCE CLEAR; URINE BILIRUBIN NEGATIVE (NEGATIVE); URINE BLOOD NEGATIVE (NEGATIVE); URINE COLOR LTYELLOW; URINE GLUCOSE (UA) NEGATIVE (NEGATIVE); URINE KETONE NEGATIVE (NEGATIVE); URINE NITRITE NEGATIVE (NEGATIVE); URINE PROTEIN NEGATIVE (NEGATIVE); URINE UROBILINOGEN NEGATIVE E.U./dl (0.2-1.0)
[2016-07-11 23:10] LABS: URINE LEUK ESTERASE TRACE (NEGATIVE)
[2016-07-11 23:12] LABS: URINE HYALINE CAST 4 /lpf; URINE RBC 1 /hpf (0-3); URINE WBC 2 /hpf (3-5)
[2016-07-12] MEDS: ACETAMINOPHEN 325 MG TABLET (FP) PO PRN (04:39)
[2016-07-12] MEDS: diazePAM 5 MG TABLET PO SCH ×3 (05:26→22:17)
[2016-07-12] MEDS ORDERED: METHADONE HCL 10 MG TABLET PO SCH (09:15)
[2016-07-12] MEDS ORDERED: FUROSEMIDE 20 MG TABLET (FP) PO SCH (10:00)
--- NOTE | 2016-07-12 10:08 | EKG ---
Test Reason : Blood Pressure : / mmHG Vent. Rate : 069 BPM Atrial Rate : 069 BPM P-R Int : 144 ms QRS Dur : 082 ms QT Int : 428 ms P-R-T Axes : 058 023 047 degrees QTc Int : 458 ms NORMAL SINUS RHYTHM LOW VOLTAGE QRS WHEN COMPARED WITH ECG OF 02-JUN-2016 22:55, NO SIGNIFICANT CHANGE WAS FOUND Confirmed by CARRI POWERS MD ([id number]) on 07/12/2016 10:08:23 AM Referred By: Confirmed By:CARRI POWERS MD
[2016-07-12 10:28] LABS: MCH 29.7 pg (25.7-33.7); MCHC 33.2 g/dl (32.0-36.0); MEAN CELL VOLUME 89.4 fl (80-96); MEAN PLT VOLUME 9.1 fl (7.5-11.1); PLATELET COUNT 87 K/MM3 (134-434); RDW 15.1 % (11.6-15.6); WHITE BLOOD COUNT 2.3 K/mm3 (4.0-10.0)
[2016-07-12] MEDS ORDERED: METHADONE 160 MG, METHADONE 30 MG PO ONE (10:30)
[2016-07-12] MEDS ORDERED: METHADONE HCL 10 MG TABLET ONE (10:42)
[2016-07-12] MEDS ORDERED: METHADONE HCL 40 MG DISPERSABLE TABLET ONE (10:42)
[2016-07-12] MEDS: PANTOPRAZOLE 40 MG TABLET (FP) PO SCH (10:45)
[2016-07-12] MEDS: CHOLECALCIFEROL (VITAMIN D3) 1,000 UNIT TABLET (FP) PO SCH (10:45)
[2016-07-12] MEDS: DOXAZOSIN MESYLATE 2 MG TABLET (FP) PO SCH (10:45)
[2016-07-12] MEDS: PRENATAL VITAMINS W/ FOLIC ACID TABLET (FP) PO SCH (10:45)
[2016-07-12] MEDS: LISINOPRIL 5 MG TABLET (FP) PO SCH (10:45)
[2016-07-12] MEDS: [UNRECOGNIZED DRUG - OTHER] PO SCH ×2 (10:46→22:20)
[2016-07-12] MEDS: cycloSPORINE MICROEMULSION (MODIFIED) 25 MG CAPSULE PO SCH ×2 (10:52→22:21)
--- NOTE | 2016-07-12 11:07 | CONSULT ---
[facility] Psychiatric Consult - Data Date of interview: 07/12/16 Admission source: [facility] Identifying data: This is 60 years old female with psychiatric hospitalization history intoxicated with: Opioids, Xanax and Nicotine Substance Abuse History: - Smoking Cessation. Smoking history: Current every day smoker. Have you smoked in the past 12 months: Yes. Aproximately how many cigarettes per day: 10. Cigars Per Day: 0. Hx Chewing Tobacco Use: No. Initiated information on smoking cessation: Yes. 'Breaking Loose' booklet given : 07/11/16. - Substance & Tx. History. Hx Alcohol Use: No. Hx Substance Use: Yes. Substance Use Type: Heroin, Tranquilizers. Hx Substance Use Treatment: Yes. - Substances Abused. Benzodiazepine temezepam. Route: Oral. Frequency: Daily. Amount used: 32 mg. Age of first use: 60. Date of Last Use : 07/11/16 Medical History: Asthma, HTN, Anemia history, GERD, HepC+, lIVER TRANSPLANT HISTORY, MMTP 190mg poqd, S/P Liver transplant 2005 Psychiatric History: Patient reports unclear history of Bipolar diusorder, reports most recent psychiatric admission opn more then 10 years ago, reports taking prior top admission: Lexapro 20mg poqd. Gabaopentin 600mg po bid Physical/Sexual Abuse/Trauma History: Denies Additional Comment: Lexapro 20mg poqd. Gabaopentin 600mg po bid Mental Status Exam - Mental Status Exam Alert and Oriented to: Person Cognitive Function: Fair Patient Appearance: Well Groomed Mood: Sad Affect: Flat Patient Behavior: Sedated Speech Pattern: Delayed Voice Loudness: Mildly Soft/Quiet Thought Process: Circumstantial Thought Disorder: Being Controlled Hallucinations: Denies Suicidal Ideation: Denies Homicidal Ideation: Denies Insight/Judgement: Fair Appetite: Fair Muscle strength/Tone: Normal Gait/Station: Normal Additional Comments: Lexapro 20mg poqd. Gabaopentin 600mg po bid Psychiatric Findings - Problem List ([place] 1, 2,3) (1) Nicotine dependence Current Visit: Yes Status: Acute Qualifiers: Nicotine product type: cigarettes Substance use status: in withdrawal Qualified Code(s): F17.213 - Nicotine dependence, cigarettes, with withdrawal (2) Uncomplicated sedative, hypnotic or anxiolytic withdrawal Current Visit: Yes Status: Acute (3) Methadone maintenance therapy patient Current Visit: Yes Status: Chronic Comment: 190 mg verification pending (4) Bipolar II disorder Current Visit: Yes Status: Suspected Comment: neurontine (5) Opioid dependence on agonist therapy Current Visit: No Status: Acute (6) Substance-induced anxiety disorder Current Visit: No Status: Acute - Initial Treatment Plan Initial Treatment Plan: Lexapro 20mg poqd. Gabaopentin 600mg po bid
[2016-07-12] MEDS: ESCITALOPRAM OXALATE 20 MG TABLET (FP) PO SCH (11:30)
[2016-07-12] MEDS: NICOTINE 14 MG/24 HOURS TOPICAL PATCH TD SCH (11:30)
[2016-07-12 11:40] LABS: ALBUMIN 3.7 g/dl (3.4-5.0); BILIRUBIN,TOTAL 0.3 mg/dL (0.2-1.0); CALCIUM 8.3 mg/dL (8.5-10.1); COCKROFT - GAULT 21.4115; CREATININE 2.8 mg/dL (0.55-1.02); TOT PROT 6.9 g/dl (6.4-8.2)
--- NOTE | 2016-07-12 16:15 | PN ---
S CIWA - CIWA Score Nausea/Vomitin-Mild Nausea/No Vomiting Muscle Tremors: 4-Moderate,w/Arms Extend Anxiety: 4-Mod. Anxious/Guarded Agitation: 2 Paroxysmal Sweats: 1-Minimal Palms Moist Orientation: 0-Oriented Tacttile Disturbances: 2-Mild Itch/Numbness/Burn Auditory Disturbances: 1-Very Mild Visual Disturbances: 0-None Headache: 3-Moderate CIWA-Ar Total Score: 18 BHS Progress Note (SOAP) Subjective: Tremors, H/A, Sweating. Objective: PT. A & O X 3, OBSERVED AMBULATING ON UNIT. 07/12/16 16:14 Vital Signs Temperature 97.9 F 07/12/16 14:19 Pulse Rate 66 07/12/16 14:19 Respiratory Rate 16 07/12/16 14:19 Blood Pressure 127/85 07/12/16 14:19 O2 Sat by Pulse Oximetry (%) Laboratory Last Values WBC 2.3 K/mm3 (4.0-10.0) L 07/12/16 06:16 RBC 3.81 M/mm3 (3.60-5.2) 07/12/16 06:16 Hgb 11.3 GM/dL (10.7-15.3) 07/12/16 06:16 Hct 34.1 % (32.4-45.2) 07/12/16 06:16 MCV 89.4 fl (80-96) 07/12/16 06:16 MCHC 33.2 g/dl (32.0-36.0) 07/12/16 06:16 RDW 15.1 % (11.6-15.6) 07/12/16 06:16 Plt Count 87 K/MM3 (134-434) L 07/12/16 06:16 MPV 9.1 fl (7.5-11.1) 07/12/16 06:16 Sodium 139 mmol/L (136-145) 07/12/16 06:16 Potassium 5.4 mmol/L (3.5-5.1) H 07/12/16 06:16 Chloride 106 mmol/L (98-107) 07/12/16 06:16 Carbon Dioxide 24 mmol/L (21-32) D 07/12/16 06:16 Anion Gap 9 (8-16) 07/12/16 06:16 BUN 55 mg/dL (7-18) H D 07/12/16 06:16 Creatinine 2.8 mg/dL (0.55-1.02) H D 07/12/16 06:16 Creat Clearance w eGFR 17.24 (>60) 07/12/16 06:16 Random Glucose 93 mg/dL (74-106) D 07/12/16 06:16 Calcium 8.3 mg/dL (8.5-10.1) L 07/12/16 06:16 Total Bilirubin 0.3 mg/dL (0.2-1.0) D 07/12/16 06:16 AST 13 U/L (15-37) L 07/12/16 06:16 ALT 13 U/L (12-78) D 07/12/16 06:16 Alkaline Phosphatase 91 U/L (45-117) 07/12/16 06:16 Total Protein 6.9 g/dl (6.4-8.2) 07/12/16 06:16 Albumin 3.7 g/dl (3.4-5.0) 07/12/16 06:16 Urine Color Ltyellow 07/11/16 21:30 Urine Appearance Clear 07/11/16 21:30 Urine pH 5.0 (5.0-8.0) 07/11/16 21:30 Ur Specific [place] 1.011 (1.001-1.035) 07/11/16 21:30 Urine Protein Negative (NEGATIVE) 07/11/16 21:30 Urine Glucose (UA) Negative (NEGATIVE) 07/11/16 21:30 Urine Ketones Negative (NEGATIVE) 07/11/16 21:30 Urine Blood Negative (NEGATIVE) 07/11/16 21:30 Urine Nitrite Negative (NEGATIVE) 07/11/16 21:30 Urine Bilirubin Negative (NEGATIVE) 07/11/16 21:30 Urine Urobilinogen Negative E.U./dl (0.2-1.0) 07/11/16 21:30 Ur Leukocyte Esterase Trace (NEGATIVE) H 07/11/16 21:30 Urine RBC 1 /hpf (0-3) 07/11/16 21:30 Urine WBC 2 /hpf (3-5) 07/11/16 21:30 Ur Epithelial Cells Rare /hpf (FEW) 07/11/16 21:30 Hyaline Casts 4 /lpf 07/11/16 21:30 RPR Titer Nonreactive (NONREACTIVE) 07/12/16 06:16 LABS NOTED. Assessment: 07/12/16 16:16 WITHDRAWAL SYMPTOMS. Plan: CONTINUE DETOX. REPEAT COMP. META TOMORROW AM. ADVISED PATIENT TO FOLLOW-UP WITH MUSIC ORCHESTRATOR / REHAB MEDICAL PROVIDER AFTER DISCHARGE FROM DETOX FOR GENERAL MEDICAL ASSESSMENT AND FOR ABNORMAL ADMISSION LAB VALUES.
[2016-07-12] MEDS: THIAMINE HCL 100 MG TABLET (FP) PO SCH (22:16)
[2016-07-12] MEDS: LACTULOSE 20 GM/30 ML UDC (FOR ORAL USE ONLY) PO SCH (22:17)
[2016-07-12] MEDS: GABAPENTIN 300 MG CAPSULE (FP) PO SCH (22:17)
[2016-07-13] MEDS ORDERED: METHADONE HCL 40 MG DISPERSABLE TABLET ONE (05:17)
[2016-07-13] MEDS ORDERED: METHADONE HCL 10 MG TABLET ONE (05:18)
[2016-07-13] MEDS: METHADONE 160 MG, METHADONE 30 MG PO SCH (05:39)
--- NOTE | 2016-07-13 09:14 | PN ---
S CIWA - CIWA Score Nausea/Vomitin-No Nausea/No Vomiting Muscle Tremors: 4-Moderate,w/Arms Extend Anxiety: 4-Mod. Anxious/Guarded Agitation: 3 Paroxysmal Sweats: 3 Orientation: 0-Oriented Tacttile Disturbances: 0-None Auditory Disturbances: 0-None Visual Disturbances: 0-None Headache: 0-None Present CIWA-Ar Total Score: 14 BHS Progress Note (SOAP) Subjective: Sweating,anxiety,tremors,interrupted sleep,restless Objective: 07/13/16 09:13 Vital Signs - 8 hr 07/13/16 07/13/16 03:30 06:00 Temperature 96.6 F L Pulse Rate 68 Respiratory 18 18 Rate Blood Pressure 167/75 Laboratory Tests 07/11/16 07/12/16 07/12/16 21:30 06:16 06:16 WBC 2.3 L RBC 3.81 Hgb 11.3 Hct 34.1 MCV 89.4 MCHC 33.2 RDW 15.1 Plt Count 87 L MPV 9.1 Sodium 139 Potassium 5.4 H Chloride 106 Carbon Dioxide 24 D Anion Gap 9 BUN 55 H D Creatinine 2.8 H D Creat Clearance w eGFR 17.24 Random Glucose 93 D Calcium 8.3 L Total Bilirubin 0.3 D AST 13 L ALT 13 D Alkaline Phosphatase 91 Total Protein 6.9 Albumin 3.7 Urine Color Ltyellow Urine Appearance Clear Urine pH 5.0 Ur Specific [place] 1.011 Urine Protein Negative Urine Glucose (UA) Negative Urine Ketones Negative Urine Blood Negative Urine Nitrite Negative Urine Bilirubin Negative Urine Urobilinogen Negative Ur Leukocyte Esterase Trace H Urine RBC 1 Urine WBC 2 Ur Epithelial Cells Rare Hyaline Casts 4 RPR Titer 07/12/16 06:16 WBC RBC Hgb Hct MCV MCHC RDW Plt Count MPV Sodium Potassium Chloride Carbon Dioxide Anion Gap BUN Creatinine Creat Clearance w eGFR Random Glucose Calcium Total Bilirubin AST ALT Alkaline Phosphatase Total Protein Albumin Urine Color Urine Appearance Urine pH Ur Specific [place] Urine Protein Urine Glucose (UA) Urine Ketones Urine Blood Urine Nitrite Urine Bilirubin Urine Urobilinogen Ur Leukocyte Esterase Urine RBC Urine WBC Ur Epithelial Cells Hyaline Casts RPR Titer Nonreactive labs noted Assessment: 07/13/16 09:13 Withdrawal sx. S/P liver transplant CRF Plan: Continue detox
[2016-07-13] MEDS: PRENATAL VITAMINS W/ FOLIC ACID TABLET (FP) PO SCH (10:17)
[2016-07-13] MEDS: diazePAM 5 MG TABLET PO SCH ×2 (10:17→22:09)
[2016-07-13] MEDS: [UNRECOGNIZED DRUG - OTHER] PO SCH ×2 (10:18→22:14)
[2016-07-13] MEDS: cycloSPORINE MICROEMULSION (MODIFIED) 25 MG CAPSULE PO SCH ×2 (10:18→22:14)
[2016-07-13] MEDS: CHOLECALCIFEROL (VITAMIN D3) 1,000 UNIT TABLET (FP) PO SCH (10:18)
[2016-07-13] MEDS: NICOTINE 14 MG/24 HOURS TOPICAL PATCH TD SCH (10:18)
[2016-07-13] MEDS: LISINOPRIL 5 MG TABLET (FP) PO SCH (10:18)
[2016-07-13] MEDS: PANTOPRAZOLE 40 MG TABLET (FP) PO SCH (10:19)
[2016-07-13] MEDS: GABAPENTIN 300 MG CAPSULE (FP) PO SCH ×2 (10:19→22:09)
[2016-07-13] MEDS: DOXAZOSIN MESYLATE 2 MG TABLET (FP) PO SCH (10:20)
[2016-07-13] MEDS: ESCITALOPRAM OXALATE 20 MG TABLET (FP) PO SCH (10:20)
[2016-07-13] MEDS: FUROSEMIDE 40 MG TABLET (FP) PO SCH (10:21)
[2016-07-13] MEDS: hydrALAZINE HCL 50 MG TABLET (FP) PO SCH ×2 (16:25→22:09)
[2016-07-13] MEDS: THIAMINE HCL 100 MG TABLET (FP) PO SCH (22:09)
[2016-07-13] MEDS: LACTULOSE 20 GM/30 ML UDC (FOR ORAL USE ONLY) PO SCH (22:55)
[2016-07-14] MEDS: ACETAMINOPHEN 325 MG TABLET (FP) PO PRN (02:16)
[2016-07-14] MEDS ORDERED: METHADONE HCL 40 MG DISPERSABLE TABLET ONE (03:49)
[2016-07-14] MEDS ORDERED: METHADONE HCL 10 MG TABLET ONE (03:49)
[2016-07-14] MEDS: METHADONE 160 MG, METHADONE 30 MG PO SCH (05:42)
[2016-07-14] MEDS: hydrALAZINE HCL 50 MG TABLET (FP) PO SCH (06:25)
[2016-07-14 09:11] VITALS: BP 158/70; PULSE 66; TEMP 98.1
[2016-07-14] MEDS: diazePAM 5 MG TABLET PO SCH (09:36)
[2016-07-14] MEDS: cycloSPORINE MICROEMULSION (MODIFIED) 25 MG CAPSULE PO SCH (09:36)
[2016-07-14] MEDS: ESCITALOPRAM OXALATE 20 MG TABLET (FP) PO SCH (09:36)
[2016-07-14] MEDS: FUROSEMIDE 40 MG TABLET (FP) PO SCH (09:36)
[2016-07-14] MEDS: [UNRECOGNIZED DRUG - OTHER] PO SCH (09:36)
[2016-07-14] MEDS: PRENATAL VITAMINS W/ FOLIC ACID TABLET (FP) PO SCH (09:36)
[2016-07-14] MEDS: PANTOPRAZOLE 40 MG TABLET (FP) PO SCH (09:38)
[2016-07-14] MEDS: DOXAZOSIN MESYLATE 2 MG TABLET (FP) PO SCH (09:38)
[2016-07-14] MEDS: LISINOPRIL 5 MG TABLET (FP) PO SCH (09:39)
[2016-07-14] MEDS: CHOLECALCIFEROL (VITAMIN D3) 1,000 UNIT TABLET (FP) PO SCH (09:40)
--- NOTE | 2016-07-14 10:00 | DS ---
[facility] Detox Discharge Summary Admission Date: 07/11/16 Discharge Date: 07/14/16 - History Present History: Sedative Dependence - Physical Exam Results Vital Signs: Vital Signs Temperature 98.1 F 07/14/16 09:10 Pulse Rate 66 07/14/16 09:10 Respiratory Rate 16 07/14/16 09:10 Blood Pressure 158/70 07/14/16 09:10 O2 Sat by Pulse Oximetry (%) - Treatment Hospital Course: Detox Protocol Followed, Detoxed Safely, Responded well, Discharged Condition Good - Medication Discharge Medications: Ambulatory Orders Aspirin [Durlaza] 162.5 mg PO DAILY 06/02/16 Calcitriol [Calcitriol -] 0.25 mcg PO DAILY 06/02/16 Cholecalciferol (Vitamin D3) [Vitamin D3 -] 1,000 unit PO DAILY 06/02/16 Cyclosporine [Sandimmune] 125 mg PO BID 06/02/16 Doxazosin Mesylate [Cardura -] 2 mg PO DAILY 06/02/16 Escitalopram Oxalate [Lexapro -] 20 mg PO DAILY 06/02/16 Ferrous Sulfate [Feosol] 325 mg PO DAILY 06/02/16 Furosemide [Lasix] 40 mg PO BID 06/02/16 Hydralazine HCl 50 mg PO TID 06/02/16 Lisinopril [Zestril] 2.5 mg PO DAILY 06/02/16 Methadone [Dolophine -] 195 mg PO DAILY 06/02/16 Pantoprazole Sodium [Protonix -] 40 mg PO DAILY 06/02/16 Escitalopram Oxalate [Lexapro -] 20 mg PO DAILY #30 tablet 06/05/16 Gabapentin [Neurontin -] 600 mg PO BID #60 06/05/16 Lactulose (Oral Use) [Cephulac -] 20 gm PO HS 06/06/16 Escitalopram Oxalate [Lexapro -] 20 mg PO DAILY #30 tablet 07/12/16 Gabapentin [Neurontin -] 600 mg PO BID #60 cap 07/12/16 - Diagnosis (1) Nicotine dependence Current Visit: Yes Status: Chronic Qualifiers: Nicotine product type: cigarettes Substance use status: uncomplicated Qualified Code(s): F17.210 - Nicotine dependence, cigarettes, uncomplicated (2) Uncomplicated sedative, hypnotic or anxiolytic withdrawal Current Visit: Yes Status: Chronic (3) Asthma Current Visit: Yes Status: Chronic Qualifiers: Asthma severity: mild intermittent Asthma complication type: with status asthmaticus Qualified Code(s): J45.22 - Mild intermittent asthma with status asthmaticus (4) Essential hypertension Current Visit: Yes Status: Chronic (5) GERD (gastroesophageal reflux disease) Current Visit: Yes Status: Chronic Qualifiers: Esophagitis presence: without esophagitis Qualified Code(s): K21.9 - Gastro-esophageal reflux disease without esophagitis (6) Methadone maintenance therapy patient Current Visit: Yes Status: Chronic (7) Bipolar II disorder Current Visit: Yes Status: Chronic (8) Hepatitis C antibody test positive Current Visit: No Status: Chronic (9) History of liver transplant Current Visit: No Status: Inactive (10) Neuropathy Current Visit: No Status: Chronic - AMA Did Patient Leave Against Medical Advice: No
[2016-07-15] MEDS ORDERED: diazePAM 5 MG TABLET PO SCH (10:00)
== END 2016-07-14 10:45 | disposition home or self-care (01) | DRG 773 ==
LOC: YASAS 12:02 → Y6N 19:01
PROVIDERS: ADMIT Internal Medicine; ATTEND Internal Medicine
PROC: HZ2ZZZZ Detoxification Services for Substance Abuse Treatment (ICD-10-PCS; principal; 2016-07-11)
DX: F13.230 Sedative, hypnotic or anxiolytic dependence with withdrawal, uncomplicated (principal); F11.20 Opioid dependence, uncomplicated; F17.210 Nicotine dependence, cigarettes, uncomplicated; F31.81 Bipolar II disorder; F19.280 Other psychoactive substance dependence with psychoactive substance-induced anxiety disorder; J45.22 Mild intermittent asthma with status asthmaticus; I10 Essential (primary) hypertension; K21.9 Gastro-esophageal reflux disease without esophagitis; B18.2 Chronic viral hepatitis C; G62.9 Polyneuropathy, unspecified; Z94.4 Liver transplant status; Z86.73 Personal history of transient ischemic attack (TIA), and cerebral infarction without residual deficits
CPT/HCPCS: 36415; 80053; 81003; 81015; 85027; 86593; 93005; 93010

== ENCOUNTER 2017-04-07 09:38 | Inpatient (IN) | payer OTHER ==
[2017-04-07 11:00] VITALS: BMI 24.9
--- NOTE | 2017-04-07 12:09 | HP ---
CIWA Score - CIWA Score Nausea/Vomitin Muscle Tremors: 4-Moderate,w/Arms Extend Anxiety: 4-Mod. Anxious/Guarded Agitation: 4-Moderately Restless Paroxysmal Sweats: 3 Orientation: 0-Oriented Tacttile Disturbances: 0-None Auditory Disturbances: 0-None Visual Disturbances: 0-None Headache: 0-None Present CIWA-Ar Total Score: 18 Admission ROS BHS - HPI Chief Complaint: clonazepine withdrawal sx Allergies/Adverse Reactions: Allergies Allergy/AdvReac Type Severity Reaction Status Date / Time No Known Allergies Allergy Verified 04/07/17 11:14 History of Present Illness: 61 yo f with h/o opioid use diorder on MMTP 160mg daily ldm today, dose verified at program vip her for clonazepam detox becasue of withdrawal sx when she does nto use no h/o seiuzres PMHX anxiety, s/o liver transplan, HTN , GERD. no s i at this time Exam Limitations: No Limitations - Ebola screening Have you traveled outside of the country in the last 21 days: No Have you had contact with anyone from an Ebola affected area: No Have you been sick,other than usual withdrawal symptoms: No Do you have a fever: No - Review of Systems Constitutional: Chills, Diaphoresis, Night Sweats, Changes in sleep, Weakness, Unintentional Wgt. Loss EENT: reports: No Symptoms Reported Respiratory: reports: No Symptoms reported Cardiac: reports: No Symptoms Reported GI: reports: Nausea, Poor Appetite, Poor Fluid Intake, Indigestion, Abdominal cramping : reports: No Symptoms Reported Musculoskeletal: reports: No Symptoms Reported Integumentary: reports: Flushing, Sweating Neuro: reports: Headache, Numbness, Tingling, Tremors, Weakness Endocrine: reports: Increased Thirst Hematology: reports: No Symptoms Reported Psychiatric: reports: Judgement Intact, Mood/Affect Appropiate, Orientated x3, Anxious, Depressed Other Systems: Reviewed and Negative Patient History - Patient Medical History Hx Anemia: Yes (ON FERROUS SULFATE) Hx Asthma: Yes (Pt is on MDI) Hx Chronic Obstructive Pulmonary Disease (COPD): No Hx Cancer: No Hx Cardiac Disorders: No Hx Congestive Heart Failure: Yes Hx Hypertension: Yes (on meds) Hx Hypercholesterolemia: Yes (no treatment) Hx Pacemaker: No HX Cerebrovascular Accident: 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) Hx Seizures: No Hx Dementia: No Hx Diabetes: No Hx Gastrointestinal Disorders: Yes Hx Liver Disease: Yes (S/P LIVER TRANSPLANTATION IN 2011) Hx Genitourinary Disorders: No Hx Sexually Transmitted Disorders: No Hx Renal Disease (ESRD): No Hx Thyroid Disease: No Hx Human Immunodeficiency Virus (HIV): No (LAST 2015 NEGATIVE) Hx Hepatitis C: Yes (liver transplanted) Hx Depression: Yes Hx Suicide Attempt: No Hx Bipolar Disorder: Yes Hx Schizophrenia: No - Patient Surgical History Past Surgical History: Yes Hx Neurologic Surgery: No Hx Cataract Extraction: No Hx Cardiac Surgery: No Hx Lung Surgery: No Hx Breast Surgery: No Hx Breast Biopsy: No Hx Abdominal Surgery: Yes (Liver transplant 2011) Hx Appendectomy: No Hx Cholecystectomy: No Hx Genitourinary Surgery: No Hx Section: No Hx Orthopedic Surgery: No Other Surgical History: S/P LIVER TRANSPLANTATION IN 2011/left ribs fx 2013 Anesthesia Reaction: No - PPD History Previous Implant?: Yes Documented Results: Positive w/proof Implanted On Prior [facility] Admission?: No Results: CXR NEG 06/06 PPD to be Administered?: No - Reproductive History Patient is a Female of Child Bearing Age (11 -55 yrs old): No Last Menstrual Period: 01/28/96 Patient : No - Smoking Cessation Smoking history: Current every day smoker Have you smoked in the past 12 months: Yes Aproximately how many cigarettes per day: 10 Cigars Per Day: 0 Hx Chewing Tobacco Use: No Initiated information on smoking cessation: Yes 'Breaking Loose' booklet given: 04/07/17 - Substance & Tx. History Hx Alcohol Use: No Hx Substance Use: Yes Substance Use Type: Prescribed, Tranquilizers Hx Substance Use Treatment: Yes (MMTP ) - Substances Abused Benzodiazepine (Klonopin) Route: Oral Frequency: Daily Amount used: 4MG Age of first use: 59 Date of Last Use: 04/07/17 Family Disease History - Family Disease History Family Disease History: Heart Disease: Father ( heart attack), Respiratory: Mother ( copd), Other: Brother ( overdose), Sister ( mva) Admission Physical Exam BHS - Vital Signs Vital Signs: Vital Signs - 24 hr 04/07/17 10:57 Temperature 97.4 F L Pulse Rate 60 Respiratory 20 Rate Blood Pressure 148/72 - Physical General Appearance: Yes: Nourished, Appropriately Dressed, Disheveled, Mild Distress, Thin, Tremorous, Irritable, Sweating, Anxious HEENTM: Yes: Within Normal Limits, EOMI, Hearing grossly Normal, Normal ENT Inspection, Normocephalic, Normal Voice, RODOLFO, Pharynx Normal Respiratory: Yes: Within Normal Limits, Chest Non-Tender, Lungs Clear, Normal Breath Sounds, No Respiratory Distress, No Accessory Muscle Use Neck: Yes: Within Normal Limits, No masses,lesions,Nodules, Supple, Trachea in good position Breast: Yes: Breast Exam Deferred Cardiology: Yes: Within Normal Limits, Regular Rhythm, Regular Rate, S1, S2 Abdominal: Yes: Normal Bowel Sounds, Non Tender, Flat, Soft, Distended, Tenderness (ruq on palpation slight no rebound ro guarding), Surgical Scar Genitourinary: Yes: Within Normal Limits Back: Yes: Within Normal Limits, Normal Inspection Musculoskeletal: Yes: Within Normal Limits, full range of Motion, Gait Steady, Pelvis Stable Extremities: Yes: Normal Capillary Refill, Normal Range of Motion, Tremors Neurological: Yes: acidizer II-XII NML intact, Fully Oriented, Alert, Motor Strength 5/5, Normal Response, Depressed Affect Integumentary: Yes: Normal Color, Warm, Diaphoresis, Moist, Pitting Edema (1+) Lymphatic: Yes: Within Normal Limits, Tenderness - Addiitonal Findings: withdrawal sx - Diagnostic (1) Opioid dependence on agonist therapy Current Visit: No Status: Acute (2) S/P liver transplant Current Visit: No Status: Acute (3) Substance-induced anxiety disorder Current Visit: No Status: Acute (4) Anemia Current Visit: No Status: Chronic Qualifiers: Anemia type: unspecified type Qualified Code(s): D64.9 - Anemia, unspecified (5) Asthma Current Visit: No Status: Chronic Qualifiers: Asthma severity: mild Asthma persistence: unspecified Asthma complication type: unspecified Qualified Code(s): J45.998 - Other asthma (6) Essential hypertension Current Visit: No Status: Chronic (7) GERD (gastroesophageal reflux disease) Current Visit: No Status: Chronic Qualifiers: Esophagitis presence: without esophagitis Qualified Code(s): K21.9 - Gastro -esophageal reflux disease without esophagitis (8) Neuropathy Current Visit: No Status: Chronic (9) Nicotine dependence Current Visit: No Status: Chronic Qualifiers: Nicotine product type: cigarettes Substance use status: uncomplicated Qualified Code(s): F17.210 - Nicotine dependence, cigarettes, uncomplicated (10) Sedative, hypnotic or anxiolytic dependence with withdrawal, uncomplicated Current Visit: No Status: Chronic (11) Bipolar II disorder Current Visit: No Status: Suspected Comment: neurontine Cleared for Admission S - Detox or Rehab [facility] Level of Care: Medically Managed Detox Regimen/Protocol: Valium S Breath Alcohol Content Breath Alcohol Content: 0 Urine Pregancy Test - Result Urine Test Results: Negative- NO Line Present Urine Drug Screen - Results Drug Screen Negative: No Urine Drug Screen Results: BZO-Benzodiazepines, MTD-Methadone
[2017-04-07] MEDS ORDERED: MAGNESIUM CITRATE 300 ML BOTTLE PO PRN (12:12)
[2017-04-07] MEDS ORDERED: guaiFENesin/D-METHORPHAN HB 10 ML UNIT-DOSE CUPS PO PRN (12:12)
[2017-04-07] MEDS ORDERED: NICOTINE POLACRILEX 2 MG GUM BUC PRN (12:12)
[2017-04-07] MEDS ORDERED: MAG HYDROX/AL HYDROX/SIMETH 30 ML UNIT-DOSE CUP PO PRN (12:12)
[2017-04-07] MEDS ORDERED: diazePAM 5 MG TABLET PO PRN (12:12)
[2017-04-07] MEDS ORDERED: MENTHOL/PHENOL 1 EACH UD MM PRN (12:12)
[2017-04-07] MEDS ORDERED: IBUPROFEN 400 MG TABLET (FP) PO PRN (12:12)
[2017-04-07] MEDS ORDERED: MAGNESIUM HYDROX 2400MG/30ML ORAL SUSPENSION 30 ML CUP PO PRN (12:12)
[2017-04-07] MEDS ORDERED: LOPERAMIDE HCL 2 MG CAPSULE PO PRN (12:12)
[2017-04-07] MEDS ORDERED: P-EPHED 60MG/TRIPROLIDI 2.5MG TABLET PO PRN (12:12)
[2017-04-07] MEDS ORDERED: ALBUTEROL SO4 18 GM HFA INHALER IH PRN (12:14)
[2017-04-07] MEDS ORDERED: ASPIRIN 81 MG CHEWABLE TABLETS PO SCH (12:15)
[2017-04-07] MEDS ORDERED: diazePAM 5 MG TABLET PO ONE (12:24)
[2017-04-07] MEDS: NICOTINE 14 MG/24 HOURS TOPICAL PATCH TD SCH (14:22)
[2017-04-07] MEDS: diazePAM 5 MG TABLET PO SCH ×2 (14:22→22:27)
[2017-04-07] MEDS: hydrALAZINE HCL 50 MG TABLET (FP) PO SCH ×2 (15:01→22:26)
[2017-04-07] MEDS ORDERED: cloNIDine HCL 0.1 MG TABLET PO ONE ×2 (17:33→18:30)
[2017-04-07] MEDS ORDERED: cycloSPORINE 100 MG CAPSULE PO SCH (22:00)
[2017-04-07] MEDS: THIAMINE HCL 100 MG TABLET (FP) PO SCH (22:26)
[2017-04-07] MEDS: CYCLOSPORINE PO SCH (22:27)
[2017-04-07] MEDS: cloNIDine HCL 0.1 MG TABLET PO SCH (22:27)
[2017-04-07] MEDS: GABAPENTIN 300 MG CAPSULE (FP) PO SCH (22:27)
[2017-04-07] MEDS: LACTULOSE 20 GM/30 ML UDC (FOR ORAL USE ONLY) PO SCH (22:28)
[2017-04-07 23:31] LABS: URINE APPEARANCE CLEAR; URINE BILIRUBIN NEGATIVE (NEGATIVE); URINE BLOOD NEGATIVE (NEGATIVE); URINE COLOR YELLOW; URINE GLUCOSE (UA) NEGATIVE (NEGATIVE); URINE KETONE NEGATIVE (NEGATIVE); URINE NITRITE NEGATIVE (NEGATIVE)
[2017-04-07 23:38] LABS: URINE LEUK ESTERASE 1+ (NEGATIVE); URINE PROTEIN 1+ (NEGATIVE)
[2017-04-07 23:42] LABS: EPI CELLS RARE /HPF (FEW); URINE HYALINE CAST 8 /lpf; URINE MUCUS RARE
[2017-04-08] MEDS: diazePAM 5 MG TABLET PO SCH ×3 (06:17→22:24)
[2017-04-08] MEDS: hydrALAZINE HCL 50 MG TABLET (FP) PO SCH ×3 (06:17→22:23)
[2017-04-08] MEDS ORDERED: METHADONE HCL 40 MG DISPERSABLE TABLET PO ONE (08:08)
[2017-04-08] MEDS ORDERED: cloNIDine HCL 0.1 MG TABLET PO SCH (10:00)
[2017-04-08] MEDS ORDERED: CALCITRIOL 0.25 MCG CAPSULE (FP) PO SCH (10:00)
[2017-04-08 10:13] LABS: HEMATOCRIT 35.8 % (32.4-45.2); HEMOGLOBIN 11.6 GM/dL (10.7-15.3); MCH 28.5 pg (25.7-33.7); MCHC 32.4 g/dl (32.0-36.0); MEAN CELL VOLUME 88.1 fl (80-96); MEAN PLT VOLUME 9.4 fl (7.5-11.1); PLATELET COUNT 112 K/MM3 (134-434); RBC 4.07 M/mm3 (3.60-5.2); RDW 14.5 % (11.6-15.6); WHITE BLOOD COUNT 3.6 K/mm3 (4.0-10.0)
[2017-04-08 10:37] LABS: CHLORIDE 106 mmol/L (98-107); POTASSIUM 5.2 mmol/L (3.5-5.1); SODIUM 140 mmol/L (136-145)
--- NOTE | 2017-04-08 10:38 | CONSULT ---
[facility] Psychiatric Consult - Data Date of interview: 04/08/17 Admission source: [facility] Identifying data: Pt. is a 61 year old female, single, and unemployed. This is one of multiple admission for patient. Pt. admitted to for Benzodiazepine dependence. Substance Abuse History: Following information confirmed with Ms. Zamora: - Smoking Cessation. Smoking history: Current every day smoker. Have you smoked in the past 12 months: Yes. Aproximately how many cigarettes per day: 10. Cigars Per Day: 0. Hx Chewing Tobacco Use: No. Initiated information on smoking cessation: Yes. 'Breaking Loose' booklet given: 04/07/17. - Substance & Tx. History. Hx Alcohol Use: No. Hx Substance Use: Yes. Substance Use Type : Prescribed, Tranquilizers. Hx Substance Use Treatment: Yes (MMTP ). - Substances Abused. Benzodiazepine (Klonopin). Route: Oral. Frequency: Daily. Amount used: 4MG. Age of first use: 59. Date of Last Use: 04/07/17 Medical History: Asthma, Anemia, Hypertension, hypercholesterolemia, CVA (in with left side weakness but recovered), S/P Liver transplant in 2011, HEP C Psychiatric History: Pt denies h/o psychiatric hospitalization and suicide attempt. Stated she saw a psychiatrist months ago, was prescribed seroquel but refused to take the medication. States she was diagnosed with bipolar disorder and MDD. Pt refuses to restart psychotrophic medications at this time. Physical/Sexual Abuse/Trauma History: Denies. Mental Status Exam - Mental Status Exam Alert and Oriented to: Time, Place, Person Cognitive Function: Good Patient Appearance: Well Groomed Mood: Euthymic Affect: Mood Congruent Patient Behavior: Talkative, Cooperative Speech Pattern: Perseverating (Focused on why her methadone was not ordered yesterday.) Voice Loudness: Normal Thought Process: Goal Oriented Thought Disorder: Not Present Hallucinations: Denies Suicidal Ideation: Denies Homicidal Ideation: Denies Insight/Judgement: Poor Sleep: Fair Appetite: Fair Muscle strength/Tone: Normal Gait/Station: Normal Psychiatric Findings - Problem List ([place] 1, 2,3) (1) Opioid dependence on agonist therapy Current Visit: Yes Status: Acute (2) Sedative, hypnotic or anxiolytic dependence with withdrawal, uncomplicated Current Visit: Yes Status: Acute (3) Substance-induced anxiety disorder Current Visit: No Status: Suspected (4) MDD (major depressive disorder) Current Visit: No Status: Chronic Comment: Self reports. - Initial Treatment Plan Initial Treatment Plan: Psychoeducation provided. Detoxification in progress. Pt. refuses psychotrophic medication. Observation.
--- NOTE | 2017-04-08 10:40 | EKG ---
Test Reason : Blood Pressure : / mmHG Vent. Rate : 049 BPM Atrial Rate : 049 BPM P-R Int : 140 ms QRS Dur : 076 ms QT Int : 512 ms P-R-T Axes : 018 031 053 degrees QTc Int : 462 ms SINUS BRADYCARDIA WITH SINUS ARRHYTHMIA OTHERWISE NORMAL ECG WHEN COMPARED WITH ECG OF 27-JAN-2017 21:00, VENT. RATE HAS DECREASED BY 27 BPM QT HAS SHORTENED Confirmed by RAFFI KLEIN, AILEEN ([id number]) on 04/08/2017 10:40:12 AM Referred By: Confirmed By:AILEEN NUGENT MD
[2017-04-08 10:51] LABS: ALBUMIN 3.9 g/dl (3.4-5.0); ALK PHOS 112 U/L (45-117); ANION GAP 7 (8-16); BILIRUBIN,TOTAL 0.4 mg/dL (0.2-1.0); BLOOD UREA NITROGEN 39 mg/dL (7-18); CALCIUM 8.6 mg/dL (8.5-10.1); CO2 27 mmol/L (21-32); CREATININE 2.3 mg/dL (0.55-1.02); GLUCOSE,RANDOM 67 mg/dL (74-106); SGOT/AST 11 U/L (15-37); SGPT/ALT 11 U/L (12-78); TOT PROT 7.2 g/dl (6.4-8.2)
[2017-04-08] MEDS: ASPIRIN COATED 81 MG TABLET.EC PO SCH (11:16)
[2017-04-08] MEDS: PANTOPRAZOLE 40 MG TABLET (FP) PO SCH (11:16)
[2017-04-08] MEDS: LISINOPRIL 5 MG TABLET (FP) PO SCH (11:17)
[2017-04-08] MEDS: cloNIDine HCL 0.1 MG TABLET PO SCH ×2 (11:19→22:23)
[2017-04-08] MEDS: GABAPENTIN 300 MG CAPSULE (FP) PO SCH ×2 (11:19→22:24)
[2017-04-08] MEDS: FERROUS SO4 325 MG TABLET (FP) PO SCH (11:19)
[2017-04-08] MEDS: PRENATAL VITAMINS W/ FOLIC ACID TABLET (FP) PO SCH (11:26)
[2017-04-08] MEDS: CHOLECALCIFEROL (VITAMIN D3) 1,000 UNIT TABLET (FP) PO SCH (11:32)
[2017-04-08] MEDS: DOXAZOSIN MESYLATE 2 MG TABLET (FP) PO SCH (11:32)
[2017-04-08] MEDS: NICOTINE 14 MG/24 HOURS TOPICAL PATCH TD SCH (11:33)
[2017-04-08] MEDS: CYCLOSPORINE PO SCH ×2 (11:38→22:24)
--- NOTE | 2017-04-08 12:32 | PN ---
S CIWA - CIWA Score Nausea/Vomitin Muscle Tremors: 2 Anxiety: 4-Mod. Anxious/Guarded Agitation: 1-Slight > Activity Paroxysmal Sweats: 1-Minimal Palms Moist Orientation: 0-Oriented Tacttile Disturbances: 1-Very Mild Itch/Numbness Auditory Disturbances: 0-None Visual Disturbances: 1-Very Mild Sensitivity Headache: 0-None Present CIWA-Ar Total Score: 13 BHS Progress Note (SOAP) Subjective: Alert, interrupted sleep, anxious, chills, diarrhea Objective: 04/08/17 12:25 Last Vital Signs Temp Pulse Resp BP Pulse Ox 97.5 F L 58 L 17 108/59 04/08/17 08:05 04/08/17 08:05 04/08/17 08:05 04/08/17 08:05 Laboratory Last Values WBC 3.6 K/mm3 (4.0-10.0) L 04/08/17 05:45 RBC 4.07 M/mm3 (3.60-5.2) 04/08/17 05:45 Hgb 11.6 GM/dL (10.7-15.3) 04/08/17 05:45 Hct 35.8 % (32.4-45.2) 04/08/17 05:45 MCV 88.1 fl (80-96) 04/08/17 05:45 MCH 28.5 pg (25.7-33.7) 04/08/17 05:45 MCHC 32.4 g/dl (32.0-36.0) 04/08/17 05:45 RDW 14.5 % (11.6-15.6) 04/08/17 05:45 Plt Count 112 K/MM3 (134-434) L 04/08/17 05:45 MPV 9.4 fl (7.5-11.1) D 04/08/17 05:45 Sodium 140 mmol/L (136-145) 04/08/17 05:45 Potassium 5.2 mmol/L (3.5-5.1) H 04/08/17 05:45 Chloride 106 mmol/L (98-107) 04/08/17 05:45 Carbon Dioxide 27 mmol/L (21-32) 04/08/17 05:45 Anion Gap 7 (8-16) L 04/08/17 05:45 BUN 39 mg/dL (7-18) H 04/08/17 05:45 Creatinine 2.3 mg/dL (0.55-1.02) H 04/08/17 05:45 Creat Clearance w eGFR 21.56 (>60) 04/08/17 05:45 Random Glucose 67 mg/dL (74-106) L 04/08/17 05:45 Calcium 8.6 mg/dL (8.5-10.1) 04/08/17 05:45 Total Bilirubin 0.4 mg/dL (0.2-1.0) 04/08/17 05:45 AST 11 U/L (15-37) L 04/08/17 05:45 ALT 11 U/L (12-78) L 04/08/17 05:45 Alkaline Phosphatase 112 U/L (45-117) 04/08/17 05:45 Total Protein 7.2 g/dl (6.4-8.2) 04/08/17 05:45 Albumin 3.9 g/dl (3.4-5.0) 04/08/17 05:45 Urine Color Yellow 04/07/17 19:44 Urine Appearance Clear 04/07/17 19:44 Urine pH 5.0 (5.0-8.0) 04/07/17 19:44 Ur Specific [place] 1.013 (1.001-1.035) 04/07/17 19:44 Urine Protein 1+ (NEGATIVE) H 04/07/17 19:44 Urine Glucose (UA) Negative (NEGATIVE) 04/07/17 19:44 Urine Ketones Negative (NEGATIVE) 04/07/17 19:44 Urine Blood Negative (NEGATIVE) 04/07/17 19:44 Urine Nitrite Negative (NEGATIVE) 04/07/17 19:44 Urine Bilirubin Negative (NEGATIVE) 04/07/17 19:44 Urine Urobilinogen 2.0 mg/dL (0.2-1.0) H 04/07/17 19:44 Ur Leukocyte Esterase 1+ (NEGATIVE) H 04/07/17 19:44 Urine WBC (Auto) 3 /hpf (3-5) 04/07/17 19:44 Urine RBC (Auto) <1 /hpf (0-3) 04/07/17 19:44 Ur Epithelial Cells Rare /HPF (FEW) 04/07/17 19:44 Hyaline Casts 8 /lpf 04/07/17 19:44 Urine Mucus Rare 04/07/17 19:44 Labs noted, Repeat U/A 04/08/17 12:32 Assessment: 04/08/17 12:32 WITHDRAWAL SYMPTOMS Plan: Continue Detox Repeat U/A Increase fluids
[2017-04-08] MEDS: LACTULOSE 20 GM/30 ML UDC (FOR ORAL USE ONLY) PO SCH (22:23)
[2017-04-08] MEDS: THIAMINE HCL 100 MG TABLET (FP) PO SCH (22:24)
[2017-04-09] MEDS: hydrALAZINE HCL 50 MG TABLET (FP) PO SCH ×3 (06:09→23:05)
[2017-04-09] MEDS: METHADONE HCL 40 MG DISPERSABLE TABLET PO SCH (06:09)
[2017-04-09] MEDS ORDERED: SODIUM POLYSTYRENE SULFONATE 15 GM/60 ML BOTTLE PO ONE ×2 (06:49→09:00)
[2017-04-09] MEDS: ASPIRIN COATED 81 MG TABLET.EC PO SCH (11:10)
[2017-04-09] MEDS: PANTOPRAZOLE 40 MG TABLET (FP) PO SCH (11:10)
[2017-04-09] MEDS: FERROUS SO4 325 MG TABLET (FP) PO SCH (11:10)
[2017-04-09] MEDS: PRENATAL VITAMINS W/ FOLIC ACID TABLET (FP) PO SCH (11:10)
[2017-04-09] MEDS: GABAPENTIN 300 MG CAPSULE (FP) PO SCH ×2 (11:11→23:05)
[2017-04-09] MEDS: diazePAM 5 MG TABLET PO SCH ×2 (11:11→23:06)
[2017-04-09] MEDS: CYCLOSPORINE PO SCH ×2 (11:12→23:05)
[2017-04-09] MEDS: CHOLECALCIFEROL (VITAMIN D3) 1,000 UNIT TABLET (FP) PO SCH (11:13)
[2017-04-09] MEDS: DOXAZOSIN MESYLATE 2 MG TABLET (FP) PO SCH (11:20)
[2017-04-09] MEDS: cloNIDine HCL 0.1 MG TABLET PO SCH ×2 (11:20→23:05)
[2017-04-09] MEDS: NICOTINE 14 MG/24 HOURS TOPICAL PATCH TD SCH (11:23)
[2017-04-09] MEDS: LISINOPRIL 5 MG TABLET (FP) PO SCH (11:24)
--- NOTE | 2017-04-09 12:58 | PN ---
S CIWA - CIWA Score Nausea/Vomitin-Mild Nausea/No Vomiting Muscle Tremors: 4-Moderate,w/Arms Extend Anxiety: 4-Mod. Anxious/Guarded Agitation: 1-Slight > Activity Paroxysmal Sweats: 3 Orientation: 0-Oriented Tacttile Disturbances: 0-None Auditory Disturbances: 0-None Visual Disturbances: 1-Very Mild Sensitivity Headache: 1-Very Mild CIWA-Ar Total Score: 15 BHS Progress Note (SOAP) Subjective: Tremors, chills, sweat, interrupted sleep Objective: 04/09/17 12:54 Last Vital Signs Temp Pulse Resp BP Pulse Ox 97.9 F 53 L 16 101/53 04/09/17 10:00 04/09/17 10:00 04/09/17 10:00 04/09/17 10:00 Laboratory Last Values WBC 3.6 K/mm3 (4.0-10.0) L 04/08/17 05:45 RBC 4.07 M/mm3 (3.60-5.2) 04/08/17 05:45 Hgb 11.6 GM/dL (10.7-15.3) 04/08/17 05:45 Hct 35.8 % (32.4-45.2) 04/08/17 05:45 MCV 88.1 fl (80-96) 04/08/17 05:45 MCH 28.5 pg (25.7-33.7) 04/08/17 05:45 MCHC 32.4 g/dl (32.0-36.0) 04/08/17 05:45 RDW 14.5 % (11.6-15.6) 04/08/17 05:45 Plt Count 112 K/MM3 (134-434) L 04/08/17 05:45 MPV 9.4 fl (7.5-11.1) D 04/08/17 05:45 Sodium 140 mmol/L (136-145) 04/08/17 05:45 Potassium 5.2 mmol/L (3.5-5.1) HReapa 04/08/17 05:45 Chloride 106 mmol/L (98-107) 04/08/17 05:45 Carbon Dioxide 27 mmol/L (21-32) 04/08/17 05:45 Anion Gap 7 (8-16) L 04/08/17 05:45 BUN 39 mg/dL (7-18) H 04/08/17 05:45 Creatinine 2.3 mg/dL (0.55-1.02) H 04/08/17 05:45 Creat Clearance w eGFR 21.56 (>60) 04/08/17 05:45 Random Glucose 67 mg/dL (74-106) L 04/08/17 05:45 Calcium 8.6 mg/dL (8.5-10.1) 04/08/17 05:45 Total Bilirubin 0.4 mg/dL (0.2-1.0) 04/08/17 05:45 AST 11 U/L (15-37) L 04/08/17 05:45 ALT 11 U/L (12-78) L 04/08/17 05:45 Alkaline Phosphatase 112 U/L (45-117) 04/08/17 05:45 Total Protein 7.2 g/dl (6.4-8.2) 04/08/17 05:45 Albumin 3.9 g/dl (3.4-5.0) 04/08/17 05:45 Urine Color Yellow 04/07/17 19:44 Urine Appearance Clear 04/07/17 19:44 Urine pH 5.0 (5.0-8.0) 04/07/17 19:44 Ur Specific [place] 1.013 (1.001-1.035) 04/07/17 19:44 Urine Protein 1+ (NEGATIVE) H 04/07/17 19:44 Urine Glucose (UA) Negative (NEGATIVE) 04/07/17 19:44 Urine Ketones Negative (NEGATIVE) 04/07/17 19:44 Urine Blood Negative (NEGATIVE) 04/07/17 19:44 Urine Nitrite Negative (NEGATIVE) 04/07/17 19:44 Urine Bilirubin Negative (NEGATIVE) 04/07/17 19:44 Urine Urobilinogen 2.0 mg/dL (0.2-1.0) H 04/07/17 19:44 Ur Leukocyte Esterase 1+ (NEGATIVE) H 04/07/17 19:44 Urine WBC (Auto) 3 /hpf (3-5) 04/07/17 19:44 Urine RBC (Auto) <1 /hpf (0-3) 04/07/17 19:44 Ur Epithelial Cells Rare /HPF (FEW) 04/07/17 19:44 Hyaline Casts 8 /lpf 04/07/17 19:44 Urine Mucus Rare 04/07/17 19:44 RPR Titer Nonreactive (NONREACTIVE) 04/08/17 05:45 Hyperkalemia: kayexalate given. Repeat BMP Repeat U/A pending results 04/09/17 12:58 04/09/17 13:05 Assessment: 04/09/17 13:03 Aox 3 ambulating no distress present Plan: Continue Detox Repeat U/A pending Repeat BMP
[2017-04-09 14:11] LABS: URINE APPEARANCE CLEAR; URINE BILIRUBIN NEGATIVE (NEGATIVE); URINE BLOOD NEGATIVE (NEGATIVE); URINE COLOR LTYELLOW; URINE GLUCOSE (UA) NEGATIVE (NEGATIVE); URINE KETONE NEGATIVE (NEGATIVE); URINE LEUK ESTERASE TRACE (NEGATIVE); URINE NITRITE NEGATIVE (NEGATIVE); URINE PROTEIN NEGATIVE (NEGATIVE); URINE UROBILINOGEN NEGATIVE mg/dL (0.2-1.0)
[2017-04-09 14:34] LABS: EPI CELLS RARE /HPF (FEW); URINE HYALINE CAST 1 /lpf; URINE MUCUS RARE
[2017-04-09] MEDS: LACTULOSE 20 GM/30 ML UDC (FOR ORAL USE ONLY) PO SCH ×2 (23:05→23:37)
[2017-04-09] MEDS: THIAMINE HCL 100 MG TABLET (FP) PO SCH (23:06)
[2017-04-09] MEDS: ACETAMINOPHEN 325 MG TABLET (FP) PO PRN (23:38)
[2017-04-10] MEDS: METHADONE HCL 40 MG DISPERSABLE TABLET PO SCH (06:01)
[2017-04-10] MEDS: hydrALAZINE HCL 50 MG TABLET (FP) PO SCH ×3 (07:09→22:25)
[2017-04-10 10:21] LABS: CHLORIDE 104 mmol/L (98-107); POTASSIUM 5.2 mmol/L (3.5-5.1); SODIUM 139 mmol/L (136-145)
[2017-04-10 10:29] LABS: ANION GAP 7 (8-16); BLOOD UREA NITROGEN 53 mg/dL (7-18); CALCIUM 8.2 mg/dL (8.5-10.1); CO2 28 mmol/L (21-32); CREATININE 2.5 mg/dL (0.55-1.02); GLUCOSE,RANDOM 97 mg/dL (74-106)
[2017-04-10] MEDS: DOXAZOSIN MESYLATE 2 MG TABLET (FP) PO SCH (10:39)
[2017-04-10] MEDS: cloNIDine HCL 0.1 MG TABLET PO SCH ×2 (10:39→22:26)
[2017-04-10] MEDS: GABAPENTIN 300 MG CAPSULE (FP) PO SCH ×3 (10:40→22:26)
[2017-04-10] MEDS: PANTOPRAZOLE 40 MG TABLET (FP) PO SCH (10:40)
[2017-04-10] MEDS: PRENATAL VITAMINS W/ FOLIC ACID TABLET (FP) PO SCH (10:40)
[2017-04-10] MEDS: ASPIRIN COATED 81 MG TABLET.EC PO SCH (10:40)
[2017-04-10] MEDS: diazePAM 5 MG TABLET PO SCH ×2 (10:40→22:27)
[2017-04-10] MEDS: FERROUS SO4 325 MG TABLET (FP) PO SCH (10:40)
[2017-04-10] MEDS: LISINOPRIL 5 MG TABLET (FP) PO SCH (10:41)
[2017-04-10] MEDS: CYCLOSPORINE PO SCH ×2 (10:41→22:27)
[2017-04-10] MEDS: CHOLECALCIFEROL (VITAMIN D3) 1,000 UNIT TABLET (FP) PO SCH (10:41)
[2017-04-10] MEDS: NICOTINE 14 MG/24 HOURS TOPICAL PATCH TD SCH (10:41)
--- NOTE | 2017-04-10 10:55 | PN ---
BHS Progress Note (SOAP) Subjective: anxiety irritable Objective: 04/10/17 10:51 Vital Signs Temperature 97.9 F 04/10/17 07:43 Pulse Rate 59 L 04/10/17 07:43 Respiratory Rate 16 04/10/17 07:43 Blood Pressure 153/67 04/10/17 07:43 O2 Sat by Pulse Oximetry (%) aaox3 ambulating no acute distress Assessment: 04/10/17 10:52 withdrawal sx Plan: continue detox increase fluids d/c in am
[2017-04-10] MEDS: ACETAMINOPHEN 325 MG TABLET (FP) PO PRN (14:23)
[2017-04-10] MEDS ORDERED: SODIUM POLYSTYRENE SULFONATE 15 GM/60 ML BOTTLE PO ONE (15:19)
[2017-04-10] MEDS: hydrOXYzine PAMOATE 50 MG CAPSULE (FP) PO PRN (19:19)
[2017-04-10] MEDS: THIAMINE HCL 100 MG TABLET (FP) PO SCH (22:27)
[2017-04-10] MEDS: LACTULOSE 20 GM/30 ML UDC (FOR ORAL USE ONLY) PO SCH (22:29)
[2017-04-10 22:31] VITALS: TEMP 98.1
[2017-04-11] MEDS: ACETAMINOPHEN 325 MG TABLET (FP) PO PRN (01:13)
[2017-04-11] MEDS: hydrOXYzine PAMOATE 50 MG CAPSULE (FP) PO PRN (01:13)
[2017-04-11] MEDS: hydrALAZINE HCL 50 MG TABLET (FP) PO SCH (05:53)
[2017-04-11] MEDS: METHADONE HCL 40 MG DISPERSABLE TABLET PO SCH (05:55)
[2017-04-11 06:28] VITALS: BP 142/73; PULSE 59
[2017-04-11] MEDS: GABAPENTIN 300 MG CAPSULE (FP) PO SCH (09:32)
[2017-04-11] MEDS: LISINOPRIL 5 MG TABLET (FP) PO SCH (09:32)
[2017-04-11] MEDS: ASPIRIN COATED 81 MG TABLET.EC PO SCH (09:32)
[2017-04-11] MEDS: CHOLECALCIFEROL (VITAMIN D3) 1,000 UNIT TABLET (FP) PO SCH (09:32)
[2017-04-11] MEDS: PRENATAL VITAMINS W/ FOLIC ACID TABLET (FP) PO SCH (09:32)
[2017-04-11] MEDS: CYCLOSPORINE PO SCH (09:32)
[2017-04-11] MEDS: cloNIDine HCL 0.1 MG TABLET PO SCH (09:32)
[2017-04-11] MEDS: DOXAZOSIN MESYLATE 2 MG TABLET (FP) PO SCH (09:32)
[2017-04-11] MEDS: NICOTINE 14 MG/24 HOURS TOPICAL PATCH TD SCH (09:32)
[2017-04-11] MEDS: FERROUS SO4 325 MG TABLET (FP) PO SCH (09:32)
[2017-04-11] MEDS: PANTOPRAZOLE 40 MG TABLET (FP) PO SCH (09:32)
[2017-04-11] MEDS ORDERED: diazePAM 5 MG TABLET PO SCH (10:00)
--- NOTE | 2017-04-11 11:52 | DS ---
[facility] Detox Discharge Summary Admission Date: 04/07/17 Discharge Date: 04/11/17 - History Present History: Opioid Dependence, Sedative Dependence Pertinent Past History: s/p liver transplant Anemia Asthma GERD HTN Neuropathy - Physical Exam Results Vital Signs: Vital Signs Temperature 98.1 F 04/11/17 06:28 Pulse Rate 59 L 04/11/17 06:28 Respiratory Rate 16 04/11/17 06:28 Blood Pressure 142/73 04/11/17 06:28 O2 Sat by Pulse Oximetry (%) Pertinent Admission Physical Exam Findings: withdrawal symptoms Laboratory Last Values WBC 3.6 K/mm3 (4.0-10.0) L 04/08/17 05:45 RBC 4.07 M/mm3 (3.60-5.2) 04/08/17 05:45 Hgb 11.6 GM/dL (10.7-15.3) 04/08/17 05:45 Hct 35.8 % (32.4-45.2) 04/08/17 05:45 MCV 88.1 fl (80-96) 04/08/17 05:45 MCH 28.5 pg (25.7-33.7) 04/08/17 05:45 MCHC 32.4 g/dl (32.0-36.0) 04/08/17 05:45 RDW 14.5 % (11.6-15.6) 04/08/17 05:45 Plt Count 112 K/MM3 (134-434) L 04/08/17 05:45 MPV 9.4 fl (7.5-11.1) D 04/08/17 05:45 Sodium 139 mmol/L (136-145) 04/10/17 07:00 Potassium 5.2 mmol/L (3.5-5.1) H 04/10/17 07:00 Chloride 104 mmol/L (98-107) 04/10/17 07:00 Carbon Dioxide 28 mmol/L (21-32) 04/10/17 07:00 Anion Gap 7 (8-16) L 04/10/17 07:00 BUN 53 mg/dL (7-18) H 04/10/17 07:00 Creatinine 2.5 mg/dL (0.55-1.02) H 04/10/17 07:00 Creat Clearance w eGFR 21.56 (>60) 04/08/17 05:45 Random Glucose 97 mg/dL (74-106) 04/10/17 07:00 Calcium 8.2 mg/dL (8.5-10.1) L 04/10/17 07:00 Total Bilirubin 0.4 mg/dL (0.2-1.0) 04/08/17 05:45 AST 11 U/L (15-37) L 04/08/17 05:45 ALT 11 U/L (12-78) L 04/08/17 05:45 Alkaline Phosphatase 112 U/L (45-117) 04/08/17 05:45 Total Protein 7.2 g/dl (6.4-8.2) 04/08/17 05:45 Albumin 3.9 g/dl (3.4-5.0) 04/08/17 05:45 Urine Color Ltyellow 04/09/17 10:45 Urine Appearance Clear 04/09/17 10:45 Urine pH 6.0 (5.0-8.0) 04/09/17 10:45 Ur Specific [place] 1.006 (1.001-1.035) 04/09/17 10:45 Urine Protein Negative (NEGATIVE) 04/09/17 10:45 Urine Glucose (UA) Negative (NEGATIVE) 04/09/17 10:45 Urine Ketones Negative (NEGATIVE) 04/09/17 10:45 Urine Blood Negative (NEGATIVE) 04/09/17 10:45 Urine Nitrite Negative (NEGATIVE) 04/09/17 10:45 Urine Bilirubin Negative (NEGATIVE) 04/09/17 10:45 Urine Urobilinogen Negative mg/dL (0.2-1.0) 04/09/17 10:45 Ur Leukocyte Esterase Trace (NEGATIVE) 04/09/17 10:45 Urine WBC (Auto) 1 /hpf (3-5) 04/09/17 10:45 Urine RBC (Auto) <1 /hpf (0-3) 04/09/17 10:45 Ur Epithelial Cells Rare /HPF (FEW) 04/09/17 10:45 Hyaline Casts 1 /lpf 04/09/17 10:45 Urine Mucus Rare 04/09/17 10:45 RPR Titer Nonreactive (NONREACTIVE) 04/08/17 05:45 - Treatment Hospital Course: Detox Protocol Followed, Detoxed Safely, Responded well, Discharged Condition Good, Rehab Referral Accepted Patient has Accepted a Rehab Referral to: [facility] - Medication Discharge Medications: Ambulatory Orders Calcitriol [Calcitriol -] 0.25 mcg PO DAILY 06/02/16 Cholecalciferol (Vitamin D3) [Vitamin D3 -] 1,000 unit PO DAILY 06/02/16 Doxazosin Mesylate [Cardura -] 2 mg PO DAILY 06/02/16 Ferrous Sulfate [Feosol] 325 mg PO DAILY 06/02/16 Lisinopril [Zestril] 2.5 mg PO DAILY 06/02/16 Pantoprazole Sodium [Protonix -] 40 mg PO DAILY 06/02/16 Lactulose (Oral Use) [Cephulac -] 20 gm PO HS 06/06/16 Albuterol Sulfate Inhaler - [Ventolin HFA Inhaler -] 2 inh PO Q4H PRN 01/27/17 Aspirin [ASA -] 81 mg PO DAILY 01/27/17 Cyclosporine [Sandimmune] 175 mg PO BID 01/27/17 Gabapentin 600 mg PO BID 01/27/17 Escitalopram Oxalate [Lexapro -] 20 mg PO DAILY #30 tablet 01/28/17 Hydralazine HCl [Apresoline -] 50 mg PO TID 04/07/17 - Diagnosis (1) Sedative, hypnotic or anxiolytic dependence with withdrawal, uncomplicated Status: Acute (2) Anemia Status: Chronic Qualifiers: Anemia type: unspecified type Qualified Code(s): D64.9 - Anemia, unspecified (3) Asthma Status: Chronic Qualifiers: Asthma severity: mild Asthma persistence: unspecified Asthma complication type: unspecified Qualified Code(s): J45.998 - Other asthma (4) Essential hypertension Status: Chronic (5) GERD (gastroesophageal reflux disease) Status: Chronic Qualifiers: Esophagitis presence: without esophagitis Qualified Code(s): K21.9 - Gastro -esophageal reflux disease without esophagitis (6) Neuropathy Status: Chronic (7) Nicotine dependence Status: Chronic Qualifiers: Nicotine product type: cigarettes Substance use status: uncomplicated Qualified Code(s): F17.210 - Nicotine dependence, cigarettes, uncomplicated (8) Uncomplicated sedative, hypnotic or anxiolytic withdrawal Status: Chronic (9) Acute hyperkalemia Status: Acute - AMA Did Patient Leave Against Medical Advice: No
== END 2017-04-11 08:48 | disposition home or self-care (01) | DRG 773 ==
LOC: YASAS 09:38 → Y6N 12:15
PROVIDERS: ADMIT Internal Medicine; ATTEND Internal Medicine
PROC: HZ2ZZZZ Detoxification Services for Substance Abuse Treatment (ICD-10-PCS; principal; 2017-04-07)
DX: F13.230 Sedative, hypnotic or anxiolytic dependence with withdrawal, uncomplicated (principal); F11.20 Opioid dependence, uncomplicated; F17.210 Nicotine dependence, cigarettes, uncomplicated; F33.9 Major depressive disorder, recurrent, unspecified; F19.280 Other psychoactive substance dependence with psychoactive substance-induced anxiety disorder; F31.81 Bipolar II disorder; I10 Essential (primary) hypertension; E78.5 Hyperlipidemia, unspecified; D64.9 Anemia, unspecified; E87.5 Hyperkalemia; J45.998 Other asthma; K21.9 Gastro-esophageal reflux disease without esophagitis; G62.9 Polyneuropathy, unspecified; Z79.82 Long term (current) use of aspirin; Z86.73 Personal history of transient ischemic attack (TIA), and cerebral infarction without residual deficits; Z94.4 Liver transplant status; Z86.19 Personal history of other infectious and parasitic diseases
CPT/HCPCS: 36415; 80048; 80053; 81003; 81015; 85027; 86593; 93005; 93010